=== PATIENT | female | born 1960 | race Caucasian/White ===

== ENCOUNTER 2018-11-13 10:41 | Outpatient (CLI) | payer MEDICARE ==
--- NOTE | 2018-11-13 11:58 | MRI ---
CERVICAL SPINE MRI WITHOUT IV CONTRAST: Date: 11/13/18 HISTORY: M47.812 spondylosis cervical and thoracic spine. Exam somewhat limited because of motion ar tifact. FINDINGS: There are generalized disc desiccation changes, and ligament and facet hypertrophic changes, with par ticularly thickening of the posterior longitudinal ligament from C4 through C7. Soft tissue neck appe ars unremarkable. Visualized lower brain appears unremarkable. C2-C3: No significant stenosis. C3-C4: Disc osteophytosis with mild lateral recess thinning and moderate left foraminal stenosis. C4-C5: Prominent disc osteophytosis, somewhat more prominent in the left paracentral region with mod erate central canal stenosis and moderate to severe left lateral recess stenosis and bilateral forami nal stenosis. C5-C6: Diffuse disc osteophytosis with canal and lateral recess stenosis, and bilateral foraminal st enosis, worse on right side. C6-C7: Diffuse disc osteophytosis with canal and lateral recess stenosis, and moderate to severe bel ateral foraminal stenosis, worse on left side. C7-T1: Focal disc osteophytosis centrally with minimal indention of the central ventral thecal sac, without significant lateral recess or foraminal stenosis. No evidence for significant abnormal marrow signal. No evidence for overt spinal cord compression or spinal cord mass, or abnormal spinal cord signal. IMPRESSION: Variable severity multilevel canal, lateral recess, and foraminal stenosis of the cervical spine, par ticularly at C4-C5, C5-C6, and C6-C7, as above. POS: TPC
== END 2018-11-13 10:42 | disposition home or self-care (01) ==
LOC: SCSMRI 10:41
PROVIDERS: ATTEND Family Medicine
DX: M47.812 Spondylosis without myelopathy or radiculopathy, cervical region (principal); M48.02 Spinal stenosis, cervical region
CPT/HCPCS: 72141; 72146

== ENCOUNTER 2019-02-05 11:13 | Emergency (ER) | payer MEDICARE ==
[2019-02-05] MEDS ORDERED: Metoprolol Tartrate 50 MG TAB ONE (11:52)
[2019-02-05] MEDS ORDERED: Gabapentin 300 MG CAP PO SCH (13:00)
[2019-02-05 14:22] LABS: Bilirubin Negative (Negative); Blood, Urine Negative (Negative); Clarity Turbid (Clear); Glucose, Urine (Dipstick) Greater than 1000 mg/dL (Negative); Leukocyte 500 Leu/uL (Negative); Nitrite Negative (Negative); Protein, Urine (Dipstick) Negative (Neg-Trace); Renal Epithelial 0-3 HPF (None Seen); Transitional Epithelial 0-3 HPF (None Seen); Urobilinogen Normal mg/dL (Less than 2); WBC/HPF Greater than 50 HPF (0-3)
[2019-02-05 14:31] LABS: Bacteria/HPF 1+ HPF (None Seen)
== END 2019-02-05 14:52 | disposition home or self-care (01) ==
LOC: ERS 11:13
DX: I10 Essential (primary) hypertension (principal); N39.0 Urinary tract infection, site not specified; E66.9 Obesity, unspecified; E11.9 Type 2 diabetes mellitus without complications; I25.10 Atherosclerotic heart disease of native coronary artery without angina pectoris; E78.5 Hyperlipidemia, unspecified; Z79.891 Long term (current) use of opiate analgesic; Z79.84 Long term (current) use of oral hypoglycemic drugs; Z79.899 Other long term (current) drug therapy
CPT/HCPCS: 81003; 81015; 99283

== ENCOUNTER 2020-01-28 17:11 | Inpatient (IN) | payer MEDICARE, OTHER ==
[~2020-01-28 17:11] MED LIST: Iopamidol-370 76% 500 ML 1 ML ONE
[2020-01-28] MEDS ORDERED: Vancomycin 1 GM/200 ML BAG ONE (18:29)
[2020-01-28] MEDS ORDERED: Ondansetron PF 4 MG/2 ML Vial ONE (20:21)
[2020-01-28] MEDS ORDERED: Acetaminophen 500 MG TAB ONE (20:21)
--- NOTE | 2020-01-28 20:56 | CT ---
EXAM: CTA of the chest HISTORY: Tachycardia and low back pain COMPARISON: CT abdomen/pelvis 01/28/2020 TECHNIQUE: Multiple contiguous axial images were obtained a CTA of the chest with contrast per pulmon aylin embolism protocol. 3-D oblique MIP reformats and direct coronal reformats were performed. FINDINGS: HEART: Normal in size without focal cardiac abnormality. PULMONARY ARTERIES: Normal in caliber without filling defects to suggest pulmonary emboli. MEDIASTINUM: No hilar or mediastinal lymphadenopathy. LUNGS: No focal infiltrates or masses. PLEURAL SPACE: No pleural effusion or pneumothorax. CHEST WALL SOFT TISSUES: Unremarkable VISUALIZED OSSEOUS STRUCTURES: Degenerative changes in the spine and the left shoulder. VISUALIZED SUBDIAPHRAGMATIC STRUCTURES: Status post cholecystectomy. 2.0 cm right adrenal mass IMPRESSION: 1. No evidence of pulmonary thromboembolism 2. The right adrenal mass was not definitely seen on prior CT of the abdomen. A left adrenal adenoma was seen on prior examination which was not imaged on this exam.
[2020-01-28] MEDS ORDERED: Labetalol HCl 100 MG/20 ML VIAL ONE (22:45)
[2020-01-29 01:00] VITALS: BMI 40.5
[2020-01-29] MEDS ORDERED: Ondansetron PF 4 MG/2 ML Vial IVP PRN (01:17)
[2020-01-29] MEDS ORDERED: Promethazine HCl 12.5 MG in Sodium Chloride 0.9% 50 ML IVPB PRN (01:17)
[2020-01-29] MEDS ORDERED: Guaifenesin DM 100-10/5 ML UDCUP PO PRN (01:17)
[2020-01-29] MEDS ORDERED: Labetalol HCl 100 MG/20 ML VIAL SLOW IVP PRN (01:17)
[2020-01-29] MEDS ORDERED: cloNIDine 0.1 MG TAB PO PRN (01:17)
[2020-01-29] MEDS ORDERED: hydrALAZINE 20 MG/ML VIAL SLOW IVP PRN (01:17)
--- NOTE | 2020-01-29 01:20 | PDOC.HHP ---
Hospitalist HPI - History of Present Illness back pain History of Present Illness: Patient is a 59 year old female with PMH HTN, DM, CAD, HLD, chronic back pain transferred from [facility] for back pain, sepsis, possible UTI. She had chronic back pain that has been worsening over the last few days. Evaluated at [facility] and diagnosed with UTI and transferred for persistent tachycardia with HR >120 for concern for sepsis. She denies urinary symptoms, vaginal complaints, fever or vomiting. No numbness, no saddle anesthesia, no bowel or bladder incontinence. She had had MRIs before, at our facility last year with some stenosis of cervical spine but the pain now in lumbar spine and not had MRI of that area. tachycardic on admission, CTA chest did not show PE, patient had paraspinal tenderness concerning for paraspinal abscess, MRI T/L spine ordered by ED, sound consulted for admission. she has DM and supposed to be on insulin but cannot afford and takes PO only. CRP 2.2, ESR normal. her UA at [facility] not actually a UTI. given empiric vancomycin. patient to be admitted for back pain and sepsis workup. Hospitalist ROS - Review of Systems Constitutional: reports: fever, weakness, malaise. denies: chills, sweats, other Eyes: denies: pain, vision change, conjunctivae inflammation, eyelid inflammation, redness, other ENT: denies: ear pain, ear discharge, nose pain, nose discharge, nose congestion , mouth pain, mouth swelling, throat pain, throat swelling, other Respiratory: denies: cough, dry, shortness of breath, hemoptysis, SOB with excertion, pleuritic pain, sputum, wheezing, other Cardiovascular: denies: chest pain, palpitations, orthopnea, paroxysmal noc. dyspnea, edema, light headedness, other Gastrointestinal: denies: nausea, vomiting, abdominal pain, diarrhea, constipation, melena, hematochezia, other Genitourinary: denies: dysuria, frequency, incontinence, hematuria, retention, other Musculoskeletal: reports: back pain. denies: neck pain, shoulder pain, arm pain , hand pain, leg pain, foot pain, other Skin: denies: rash, lesions, peter, bruising, other Neurological: denies: weakness, numbness, incoordination, change in speech, confusion, seizures, other All other systems reviewed; all pertinent +/- noted in HPI/Subj - Medication Medications: Catapres TABLET : Strength - 0.1 mg : ORAL Patient Dose: tab(s) Oral 2 times a day. glipiZIDE TABLET : Strength - 10 mg : ORAL Patient Dose: 1 tab(s) Oral 2 times a day. hydrochlorothiazide TABLET : Strength - 25 mg : ORAL Patient Dose: 1 tab(s) Oral once a day. metFORMIN TABLET : Strength - 500 mg : ORAL Patient Dose: 1 tab(s) Oral 2 times a day. gabapentin CAPSULE : Strength - 100 mg : ORAL Patient Dose: 2 times a day. celecoxib CAPSULE : Strength - 100 mg : ORAL Patient Dose: once a day. Hospitalist History - Past Medical History Other Medical History: history of hypertension, hyperlipidemia, HTN, CAD, diabetes - Past Surgical History Other Surgical History: Surgical history of cholecystectomy, veins stripping, vericous veins, cleft palate, DNC ABOUT 13 YEARS AGO SHE HAS NOT HAD A PERIOD SINCE. BREAST BIOPSY, ENDOSCOPY - Family History Family History: reports: no pertinent history - Social History Alcohol: reports: None Drugs: reports: none - Exam General Appearance: NAD, awake alert Eye: PERRL, anicteric sclera ENT: normocephalic atraumatic, no oropharyngeal lesions, moist mucosa Neck: supple, symmetric, no JVD, no thyromegaly, no lymphadenopathy, no carotid bruit Heart: RRR, no murmur, no gallops, no rubs, normal peripheral pulses Respiratory: CTAB, no wheezes, no rales, no ronchi, normal chest expansion, no tachypnea, normal percussion Gastrointestinal: soft, non-tender, non-distended, normal bowel sounds, no palpable masses, no hepatomegaly, no splenomegaly, no bruit Extremities: no cyanosis, no clubbing, no edema Extremities - other findings: paraspinal tenderness T/L spine no rash Skin: normal turgor, no lesions, no rashes Neurological: cranial nerve grossly intact, normal sensation to touch, no weakness, no focal deficits, no new deficit Neurological - other findings: SLR negative bilaterally, normal sens/motor all extr. all rflx 2+ and equal Musculoskeletal: normal tone, normal strength, no muscle wasting Psychiatric: normal affect, normal behavior, A&O x 3 Hospitalist Results - Labs Result Diagrams: 01/29/20 03:36 01/29/20 03:36 Lab results: ESR Westergren 63 mm/hr (Less than 30) 01/28/20 18:44 Lactic Acid 1.4 mmol/L (0.5-2.2) 01/28/20 18:44 C-Reactive Protein 2.21 mg/dL (= or < 0.5) H 01/28/20 18:44 CTA Angio Chest W WO Con Observe DT: [facility] Jan 28, 2020 IMPRESSION: 1. No evidence of pulmonary thromboembolism 2. The right adrenal mass was not definitely seen on prior CT of the abdomen. A left adrenal adenoma was seen on prior examination which was not imaged on this exam. Additional comment: VITAL SIGNS [facility] Jan 28, 2020 23:28 DARRIUS Macdonald Jeffery BP: 178/106 Time: 01/28/2020 23:28. VITAL SIGNS [facility] Jan 28, 2020 22:30 DARRIUS Macdonald Jeffery BP: 224/144 Time: 01/28/2020 22:30. VITAL SIGNS [facility] Jan 28, 2020 23:59 DARRIUS Aguilera Lindsey BP: 181/105 MAP: 138 Pulse: 100 Resp: 20 (Non-Labored) Temp: 97.9 (Oral) Pain: 5 O2 sat: 100 on (Room Air) Time: 01/28/2020 23:59. Hospitalist H&P A/P - Plan Plan: Patient is a 59 year old female with PMH HTN, DM, CAD, HLD, chronic back pain transferred from [facility] for back pain, sepsis, possible UTI. # paraspinal tenderness # sepsis # acute and chronic back pain She had chronic back pain that has been worsening over the last few days. Evaluated at [facility] and diagnosed with UTI and transferred for persistent tachycardia with HR >120 for concern for sepsis. No numbness, no saddle anesthesia, no bowel or bladder incontinence. neuro exam normal. She had had MRIs before, at our facility last year with some stenosis of cervical spine but the pain now in lumbar spine and not had MRI of that area. tachycardic on admission, CTA chest did not show PE, patient had paraspinal tenderness concerning for paraspinal abscess, MRI T/L spine ordered by ED, sound consulted for admission. CRP 2.2, ESR normal. her UA at [facility] not actually a UTI. given empiric vancomycin. patient to be admitted for back pain and sepsis workup. pcn allergy noted. has home health. nurse encouraged her to come in. - admit to floor - MRI T/L spine - PRN pain medications, resume home meds - start vancomycin/levaquin, follow cultures # HTN - resume home meds, PRNs ordered as well. she missed her clonidine due to lack of refills, probably having rebound htn # CAD - unclear history, resume home meds and ASA # DM - cannot affort insulin, on PO meds at home - SSI # HLD - resume home meds
[2020-01-29] MEDS ORDERED: Electrolyte Replacement Protoc 1 EACH EACH FS PRN (01:30)
[2020-01-29] MEDS: HYDROcodone/Acetaminophen 5/325 mg Tablet PO PRN (02:08)
[2020-01-29 02:46] LABS: Cocaine Metabolite Screen Not Detected (NotDetected); Medtox Reader # READER 4; Methamphetamine Not Detected (NotDetected); Phencyclidine (PCP) Not Detected (NotDetected); THC/Cannabinoid Screen Not Detected (NotDetected)
[2020-01-29 02:47] LABS: Amphetamine Not Detected (NotDetected); Barbiturates Screen Not Detected (NotDetected); Benzodiazepine Screen Not Detected (NotDetected); Medtox Control Line Valid? VALID (VALID); Methadone Not Detected (NotDetected); Opiate Screen Detected (NotDetected); Oxycodone Screen Not Detected (NotDetected); Tricyclic Screen Not Detected (NotDetected)
[2020-01-29] MEDS: Vancomycin 1.5 GRAM/300 ML BAG 1.5 GM in Premix Bag 1 BAG IVPB SCH ×2 (03:16→16:58)
[2020-01-29 03:47] LABS: #Lymphocytes 1.7 thou/uL (1.20-3.40); #Monocytes 0.7 thou/uL (0.11-0.59); #Neutrophils 7.5 thou/uL (1.40-6.50); %Eosinophils 0.1 % (0.0-10.0); %Lymphocytes 16.8 % (21.0-51.0); %Monocytes 6.8 % (0.0-10.0); %Neutrophils 76.3 % (42.0-75.0); Hemoglobin 13.4 g/dL (12.0-16.0); Mean Corpuscular HGB CONC 33.6 g/dL (32.0-36.0); Mean Corpuscular Hemoglobin 30.3 pg (27.0-31.0); Mean Corpuscular Volume 90.3 fL (78.0-98.0); Platelet Count 162 thou/uL (130-400); RBC Distribution Width 11.8 % (11.5-14.5); Red Blood Cell (RBC) Count 4.43 mill/uL (4.20-5.40); White Blood Cell (WBC) Count 9.9 thou/uL (4.8-10.8)
[2020-01-29 04:05] LABS: Anion Gap 15 mmol/L (10-20); BUN (Urea Nitrogen) 16 mg/dL (9.8-20.1); Calc. Creatinine Clearance 129 mL/min (70-130); Calcium 8.7 mg/dL (7.8-10.44); Carbon Dioxide 25 mmol/L (22-29); Chloride 98 mmol/L (98-107); Estimated GFR-MDRD 77; Glucose 370 mg/dL (70-105); Magnesium 1.9 mg/dL (1.6-2.6); Potassium 4.1 mmol/L (3.5-5.1); Sodium 134 mmol/L (136-145)
[2020-01-29] MEDS ORDERED: Magnesium 2 GM/50 ML 2 GM in Premix Bag 1 BAG IVPB SCH (05:30)
[2020-01-29] MEDS: HumaLOG 300 UNITS/3 ML VIAL SC PRN ×4 (05:39→21:20)
[2020-01-29] MEDS ORDERED: cloNIDine 0.2 MG TAB PO PRN (05:42)
[2020-01-29] MEDS ORDERED: Aspirin 81 mg Enteric Coated Tablet PO SCH (06:45)
[2020-01-29] MEDS ORDERED: Lorazepam 2 MG/ML VIAL SLOW IVP SCH ×2 (08:30→10:30)
[2020-01-29] MEDS: Acetaminophen 325 MG TAB PO PRN (08:58)
[2020-01-29] MEDS: Famotidine 20 MG TAB PO SCH ×3 (08:59→21:20)
[2020-01-29] MEDS: Enoxaparin Sodium 40 MG/0.4 ML SYRINGE SC SCH (08:59)
[2020-01-29] MEDS: Aspirin 81 mg Enteric Coated Tablet PO SCH ×2 (08:59→10:11)
[2020-01-29] MEDS: Gabapentin 300 MG CAP PO SCH ×4 (08:59→21:20)
[2020-01-29] MEDS: Carvedilol 25 MG TAB PO SCH ×3 (09:00→21:20)
[2020-01-29] MEDS: Amlodipine 5 MG TAB PO SCH (09:00)
[2020-01-29] MEDS: glipiZIDE 10 MG TAB PO SCH ×2 (09:00→10:14)
[2020-01-29] MEDS: Polyethylene Glycol 3350 17 GM Packet PO SCH ×2 (09:01→10:14)
[2020-01-29] MEDS: Insulin Glargine 10 UNITS in Pre-Filled Syringe 1 EACH SC SCH (10:06)
[2020-01-29] MEDS: Morphine 2 MG/ML VIAL SLOW IVP PRN (10:15)
[2020-01-29] MEDS ORDERED: Magnevist 469MG/ML 20 ML VIAL ONE ×2 (11:03)
--- NOTE | 2020-01-29 12:06 | MRI ---
EXAM: MRI Thoracic Spine W WO Con DATE: 01/29/2020 8:47 AM INDICATION: Concern for epidural abscess COMPARISON: CTA of the chest dated January 28, 2020 and thoracic radiograph dated January 16, 2019. Co mparisons are also made with a prior MR of the thoracic spine dated 11/13/2018 FINDIN cc of [employer] was utilized for the exam. The bone marrow signal intensity appears within normal limits. The disc space heights are slightly na rrowed but within normal limits. There is multilevel DISH like changes involving the thoracic spine. No appreciable central canal or neural foraminal narrowing is demonstrated. No definite abnorm al epidural fluid collection is evident. There is no abnormal enhancement seen involving the disc spaces or vertebral bodies. IMPRESSION:No evidence to suggest presence of discitis osteomyelitis or epidural abscess formation wi thin the thoracic spine. Thoracic spondylosis.
--- NOTE | 2020-01-29 12:14 | MRI ---
Exam: Spine MRI with and without contrast HISTORY: Chronic back pain, x2 years. Symptoms are worsening over the last week. Evaluate for epidural abscess. FINDINGS: Appropriate T1 marrow signal intensity of the lumbar vertebra. Lumbar spine vertebral body heights ar e maintained. There is no fracture. No significant STIR hyperintensity to suggest vertebral body edema or ligamentous injury. There is no paravertebral or presacral edema/abnormal fluid collection. Appropriate signal intensity visualized paraspinal muscles and solid organs. Conus medullaris terminates at the T12-L1 disc space. Postcontrast images do not demonstrate any abnormal enhancement within the thecal sac including the c auda equina and conus medullaris. There is partial sacralization of L5 with a rudimentary L5-S1 disc. T11-T12: No significant posterior disc abnormality. No significant central canal stenosis or signific ant neural foraminal narrowing. T12-L1: Adequate disc hydration. No posterior disc abnormality. No significant central canal stenosis or significant neural foraminal narrowing. L1-L2: Adequate disc hydration. No posterior disc abnormality. Minimal flattening of the thecal sac. There is mild ligamentum flavum thickening and facet hypertrophy. Bilaterally, neural foramina are patent. L2-L3: Disc desiccation without significant loss of disc space height. Broad-based disc bulge, ligame ntum flavum thickening and facet hypertrophy result in mild to moderate central canal stenosis. Patent bilateral neural foramina. L3-L4: Disc desiccation without significant loss of disc space height. Broad-based disc bulge, ligame ntum flavum thickening and facet hypertrophy result in moderate central canal stenosis. Mild bilateral foraminal narrowing due to disc material. L4-L5: Disc desiccation without significant loss of disc space height. Broad-based disc bulge with a small central disc herniation. Mild ligamentum flavum thickening and facet hypertrophy. Mild stenosis of the thecal sac. Encroachment upon bilateral subarticular zones with partial obscuration o f bilateral traversing L5 nerve roots. L5-S1: Based on the sagittal images, no significant central canal stenosis or significant neural fora brooklynn narrowing. Note, the overall AP diameter of the central spinal canal is narrowed secondary to congenitally fore shortened pedicles. IMPRESSION: 1. No pathologic enhancement of the vertebral bodies. 2. Congenitally foreshortened pedicles with overall decreased AP diameter of the central spinal canal . 3. No evidence of epidural abscess. 4. Varying degrees of central canal stenosis and neural foraminal narrowing as detailed above. Transcribed Date/Time: 01/29/2020 1:06 PM
[2020-01-29 13:58] LABS: SARS-CoV-2 MS2 Positive; SARS-CoV-2 N Gene Negative; SARS-CoV-2 S Gene Negative; SARS-CoV-2 by NAA Not Detected (NotDetected); SARS-CoV-2 orf1ab Negative
[2020-01-30] MEDS: Vancomycin 1.5 GRAM/300 ML BAG 1.5 GM in Premix Bag 1 BAG IVPB SCH (02:43)
[2020-01-30 05:27] LABS: #Basophils 0.1 thou/uL (0.0-0.2); #Eosinphils 0.1 thou/uL (0.0-0.7); #Lymphocytes 2.3 thou/uL (1.20-3.40); #Monocytes 0.6 thou/uL (0.11-0.59); #Neutrophils 4.1 thou/uL (1.40-6.50); %Basophils 0.8 % (0.0-1.0); %Eosinophils 1.9 % (0.0-10.0); %Lymphocytes 32.3 % (21.0-51.0); %Monocytes 8.1 % (0.0-10.0); %Neutrophils 56.9 % (42.0-75.0); Hemoglobin 12.8 g/dL (12.0-16.0); Mean Corpuscular HGB CONC 31.9 g/dL (32.0-36.0); Mean Corpuscular Hemoglobin 29.6 pg (27.0-31.0); Mean Corpuscular Volume 92.6 fL (78.0-98.0); Mean Platelet Volume 9.3 fL (7.4-10.4); Platelet Count 150 thou/uL (130-400); RBC Distribution Width 12.1 % (11.5-14.5); Red Blood Cell (RBC) Count 4.34 mill/uL (4.20-5.40); White Blood Cell (WBC) Count 7.2 thou/uL (4.8-10.8)
[2020-01-30 05:58] LABS: Anion Gap 15 mmol/L (10-20); BUN (Urea Nitrogen) 18 mg/dL (9.8-20.1); Calc. Creatinine Clearance 136 mL/min (70-130); Calcium 7.9 mg/dL (7.8-10.44); Carbon Dioxide 21 mmol/L (22-29); Chloride 102 mmol/L (98-107); Estimated GFR-MDRD 82; Glucose 279 mg/dL (70-105); Magnesium 2.2 mg/dL (1.6-2.6); Potassium 4.2 mmol/L (3.5-5.1); Sodium 134 mmol/L (136-145)
[2020-01-30] MEDS: HYDROcodone/Acetaminophen 5/325 mg Tablet PO PRN (07:22)
[2020-01-30] MEDS: Aspirin 81 mg Enteric Coated Tablet PO SCH (08:37)
[2020-01-30] MEDS: glipiZIDE 10 MG TAB PO SCH (08:38)
[2020-01-30] MEDS: Carvedilol 25 MG TAB PO SCH ×2 (08:39→20:45)
[2020-01-30] MEDS: Amlodipine 5 MG TAB PO SCH (08:40)
[2020-01-30] MEDS: Famotidine 20 MG TAB PO SCH ×2 (08:43→20:45)
[2020-01-30] MEDS: Gabapentin 300 MG CAP PO SCH ×3 (08:43→20:45)
[2020-01-30] MEDS: Insulin Glargine 10 UNITS in Pre-Filled Syringe 1 EACH SC SCH ×2 (08:44→20:45)
[2020-01-30] MEDS: Enoxaparin Sodium 40 MG/0.4 ML SYRINGE SC SCH (08:45)
[2020-01-30] MEDS: Polyethylene Glycol 3350 17 GM Packet PO SCH (08:46)
[2020-01-30] MEDS: Acetaminophen 325 MG TAB PO PRN (08:54)
[2020-01-30] MEDS ORDERED: Lidocaine 5% Patch TD SCH (11:00)
[2020-01-30] MEDS ORDERED: predniSONE 20 MG TAB PO SCH (11:45)
[2020-01-30] MEDS: Morphine 2 MG/ML VIAL SLOW IVP PRN (12:31)
[2020-01-30] MEDS: HumaLOG 300 UNITS/3 ML VIAL SC PRN ×2 (13:54→20:45)
[2020-01-30] MEDS: Methocarbamol 500 MG TAB PO SCH ×2 (15:49→20:45)
--- NOTE | 2020-01-30 16:12 | PDOC.HOSPP ---
- Subjective Subjective: still complaints of back pain. No evidence of infection on spine MRI. no fever. d/w her sister on the phone - Objective Vital Signs & Weight: Vital Signs (12 hours) Temp Pulse Resp BP BP Pulse Ox 01/30/20 08:40 82 142/78 H 01/30/20 08:00 97.4 F L 82 18 142/78 H 94 L Weight Weight 229 lb I&O: 01/29/20 01/30/20 01/31/20 06:59 06:59 06:59 Intake Total 520 300 Output Total 1000 950 Balance -480 -650 Result Diagrams: 01/30/20 05:13 01/30/20 05:13 Additional Labs: Accuchecks 01/30/20 01/30/20 01/29/20 08:13 04:35 21:14 POC Glucose 278 H 288 H 298 H 01/29/20 16:57 POC Glucose 321 H Hospitalist ROS - Medication Medications: Active Medications Generic Name Dose Route Start Last Admin Trade Name Freq PRN Reason Stop Dose Admin Acetaminophen 650 mg 01/29/20 01:17 01/30/20 08:54 Tylenol PO 650 mg Q4H PRN Administration Headache/Fever/Mild Pain (1-3) Hydrocodone Bitart/Acetaminophen 1 tab 01/29/20 01:17 01/30/20 07:22 [place] 5/325 PO 1 tab Q4H PRN Administration Moderate Pain (4-6) Amlodipine Besylate 2.5 mg 01/29/20 09:00 01/30/20 08:40 Norvasc PO 2.5 mg QAM BRENDA Administration Aspirin 81 mg 01/29/20 09:00 01/30/20 08:37 Ecotrin PO 81 mg DAILY BRENDA Administration Carvedilol 25 mg 01/29/20 09:00 01/30/20 08:39 Coreg PO 25 mg BID BRENDA Administration Enoxaparin Sodium 40 mg 01/29/20 09:00 01/30/20 08:45 Lovenox SC 40 mg 0900 BRENDA Administration Famotidine 20 mg 01/29/20 09:00 01/30/20 08:43 Pepcid PO 20 mg BID BRENDA Administration Gabapentin 600 mg 01/29/20 09:00 01/30/20 15:49 Neurontin PO 600 mg TID BRENDA Administration Glipizide 10 mg 01/29/20 09:00 01/30/20 08:38 Glucotrol PO 10 mg DAILY BRENDA Administration Promethazine HCl 12.5 mg/ 50.5 mls @ 202 mls/hr 01/29/20 01:17 01/29/20 10:43 Sodium Chloride IVPB 50.5 mls Q6H PRN Administration Nausea/vomiting use second Insulin Glargine 10 units/ 0.1 mls @ 0 mls/hr 01/29/20 09:00 01/30/20 08:44 Miscellaneous Medication SC 0.1 mls QAM BRENDA Administration Insulin Human Lispro 0 units 01/29/20 01:17 01/30/20 13:54 Humalog SC 3 unit .MILD SLIDING SCALE PRN Administration Mild Correctional Scale Methocarbamol 500 mg 01/30/20 15:00 01/30/20 15:49 Robaxin PO 500 mg TID BRENDA Administration Morphine Sulfate 2 mg 01/29/20 01:17 01/30/20 12:31 Morphine SLOW IVP 2 mg Q4H PRN Administration severe pain 4-10 Polyethylene Glycol 17 gm 01/29/20 09:00 01/30/20 08:46 Miralax PO Not Given DAILY BRENDA Sodium Chloride 10 ml 01/29/20 09:00 01/30/20 08:45 Flush - Normal Saline IVF 10 ml Q12HR BRENDA Administration Hosp A/P - Plan -Physical Exam General Appearance: NAD, awake alert Eye: PERRL, anicteric sclera ENT: normocephalic atraumatic, no oropharyngeal lesions, moist mucosa Neck: supple, symmetric, no JVD, no thyromegaly, no lymphadenopathy, no carotid bruit Heart: RRR, no murmur, no gallops, no rubs, normal peripheral pulses Respiratory: CTAB, no wheezes, no rales, no ronchi, normal chest expansion, no tachypnea, normal percussion Gastrointestinal: soft, non-tender, non-distended, normal bowel sounds, no palpable masses, no hepatomegaly, no splenomegaly, no bruit Extremities: no cyanosis, no clubbing, no edema Extremities - other findings: paraspinal tenderness T/L spine no rash Skin: normal turgor, no lesions, no rashes Neurological: cranial nerve grossly intact, normal sensation to touch, no weakness, no focal deficits, no new deficit Neurological - other findings: SLR negative bilaterally, normal sens/motor all extr. all rflx 2+ and equal Musculoskeletal: normal tone, normal strength, no muscle wasting Psychiatric: normal affect, normal behavior, A&O x 3 Assessment and Plan: Patient is a 59 year old female with PMH HTN, DM, CAD, HLD, chronic back pain transferred from [facility] for back pain, sepsis, possible UTI. #Acute on chronic low back pain #Sepsis ruled out #SIRS - non-infectious etiology #HTN #DM 2 #HLD #CAD 01/30/20 MRI of T and L-spine reviewed. No evidence of abscess. Patient remains afebrile. Patient has SIRS, noninfectious etiology, likely due to her underlying pain. We will DC empiric IV abx, and monitor clinically. UCx and BCx no growth. Adjust pain regimen. PT eval, may need rehab upon discharge. COVID neg. 01/29/20 She had chronic back pain that has been worsening over the last few days. Evaluated at [facility] and diagnosed with UTI and transferred for persistent tachycardia with HR >120 for concern for sepsis. No numbness, no saddle anesthesia, no bowel or bladder incontinence. neuro exam normal. She had had MRIs before, at our facility last year with some stenosis of cervical spine but the pain now in lumbar spine and not had MRI of that area. tachycardic on admission, CTA chest did not show PE, patient had paraspinal tenderness concerning for paraspinal abscess, MRI T/L spine ordered by ED, sound consulted for admission. CRP 2.2, ESR normal. her UA at [place] not actually a UTI. given empiric vancomycin. patient to be admitted for back pain and sepsis workup. pcn allergy noted. has home health. nurse encouraged her to come in. - admit to floor - MRI T/L spine - PRN pain medications, resume home meds - start vancomycin/levaquin, follow cultures
[2020-01-30] MEDS: Lidocaine Patch Removal 1 EACH TOP SCH (21:00)
[2020-01-31] MEDS: HYDROcodone/Acetaminophen 5/325 mg Tablet PO PRN ×2 (02:01→08:24)
[2020-01-31 04:09] LABS: #Lymphocytes 1.4 thou/uL (1.20-3.40); #Monocytes 0.4 thou/uL (0.11-0.59); #Neutrophils 6.7 thou/uL (1.40-6.50); %Basophils 0.1 % (0.0-1.0); %Eosinophils 0.2 % (0.0-10.0); %Lymphocytes 16.7 % (21.0-51.0); %Monocytes 4.2 % (0.0-10.0); %Neutrophils 78.8 % (42.0-75.0); Hemoglobin 13.2 g/dL (12.0-16.0); Mean Corpuscular HGB CONC 32.3 g/dL (32.0-36.0); Mean Corpuscular Hemoglobin 29.8 pg (27.0-31.0); Mean Corpuscular Volume 92.2 fL (78.0-98.0); Mean Platelet Volume 9.2 fL (7.4-10.4); Platelet Count 160 thou/uL (130-400); RBC Distribution Width 11.9 % (11.5-14.5); Red Blood Cell (RBC) Count 4.44 mill/uL (4.20-5.40); White Blood Cell (WBC) Count 8.5 thou/uL (4.8-10.8)
[2020-01-31 04:45] LABS: Anion Gap 11 mmol/L (10-20); BUN (Urea Nitrogen) 20 mg/dL (9.8-20.1); Calc. Creatinine Clearance 132 mL/min (70-130); Calcium 8.4 mg/dL (7.8-10.44); Carbon Dioxide 27 mmol/L (22-29); Chloride 100 mmol/L (98-107); Estimated GFR-MDRD 79; Glucose 313 mg/dL (70-105); Magnesium 2.2 mg/dL (1.6-2.6); Potassium 4.3 mmol/L (3.5-5.1); Sodium 134 mmol/L (136-145)
[2020-01-31] MEDS: Aspirin 81 mg Enteric Coated Tablet PO SCH (08:22)
[2020-01-31] MEDS: Gabapentin 300 MG CAP PO SCH ×3 (08:22→20:38)
[2020-01-31] MEDS: predniSONE 20 MG TAB PO SCH (08:22)
[2020-01-31] MEDS: Amlodipine 5 MG TAB PO SCH (08:23)
[2020-01-31] MEDS: Carvedilol 25 MG TAB PO SCH ×2 (08:24→20:38)
[2020-01-31] MEDS: Methocarbamol 500 MG TAB PO SCH ×3 (08:25→20:38)
[2020-01-31] MEDS: glipiZIDE 10 MG TAB PO SCH (08:25)
[2020-01-31] MEDS: Famotidine 20 MG TAB PO SCH ×2 (08:25→20:38)
[2020-01-31] MEDS: Insulin Glargine 10 UNITS in Pre-Filled Syringe 1 EACH SC SCH ×2 (08:25→20:38)
[2020-01-31] MEDS: Enoxaparin Sodium 40 MG/0.4 ML SYRINGE SC SCH (08:25)
[2020-01-31] MEDS: Polyethylene Glycol 3350 17 GM Packet PO SCH (08:27)
[2020-01-31] MEDS: Lidocaine 5% Patch TD SCH (11:07)
[2020-01-31] MEDS: HumaLOG 300 UNITS/3 ML VIAL SC PRN ×3 (13:49→20:38)
--- NOTE | 2020-01-31 14:29 | PDOC.HOSPP ---
- Subjective Subjective: c/o back pain, but better. Pt declined inpt rehab. She would like to go home tomorrow and follow up with pain specialist. - Objective Vital Signs & Weight: Vital Signs (12 hours) Temp Pulse Resp BP Pulse Ox 01/31/20 08:23 84 01/31/20 08:00 97.7 F 84 16 134/80 96 Weight Weight 229 lb I&O: 01/30/20 01/31/20 02/01/20 06:59 06:59 06:59 Intake Total 300 Output Total 950 Balance -650 Result Diagrams: 01/31/20 03:55 01/31/20 03:55 Additional Labs: Accuchecks 01/31/20 01/31/20 01/30/20 13:19 08:16 19:34 POC Glucose 385 H 253 H 424 H 01/30/20 16:10 POC Glucose 133 H Hospitalist ROS - Medication Medications: Active Medications Generic Name Dose Route Start Last Admin Trade Name Freq PRN Reason Stop Dose Admin Acetaminophen 650 mg 01/29/20 01:17 01/30/20 08:54 Tylenol PO 650 mg Q4H PRN Administration Headache/Fever/Mild Pain (1-3) Hydrocodone Bitart/Acetaminophen 1 tab 01/29/20 01:17 01/31/20 08:24 [place] 5/325 PO 1 tab Q4H PRN Administration Moderate Pain (4-6) Amlodipine Besylate 2.5 mg 01/29/20 09:00 01/31/20 08:23 Norvasc PO 2.5 mg QAM BRENDA Administration Aspirin 81 mg 01/29/20 09:00 01/31/20 08:22 Ecotrin PO 81 mg DAILY BRENDA Administration Carvedilol 25 mg 01/29/20 09:00 01/31/20 08:24 Coreg PO 25 mg BID BRENDA Administration Enoxaparin Sodium 40 mg 01/29/20 09:00 01/31/20 08:25 Lovenox SC 40 mg 0900 BRENDA Administration Famotidine 20 mg 01/29/20 09:00 01/31/20 08:25 Pepcid PO 20 mg BID BRENDA Administration Gabapentin 600 mg 01/29/20 09:00 01/31/20 08:22 Neurontin PO 600 mg TID BRENDA Administration Glipizide 10 mg 01/29/20 09:00 01/31/20 08:25 Glucotrol PO 10 mg DAILY BRENDA Administration Promethazine HCl 12.5 mg/ 50.5 mls @ 202 mls/hr 01/29/20 01:17 01/29/20 10:43 Sodium Chloride IVPB 50.5 mls Q6H PRN Administration Nausea/vomiting use second Insulin Glargine 10 units/ 0.1 mls @ 0 mls/hr 01/29/20 09:00 01/31/20 08:25 Miscellaneous Medication SC 0.1 mls QAM BRENDA Administration Insulin Glargine 10 units/ 0.1 mls @ 0 mls/hr 01/30/20 21:00 01/30/20 20:45 Miscellaneous Medication SC 0.1 mls HS BRENDA Administration Insulin Human Lispro 0 units 01/29/20 01:17 01/31/20 13:49 Humalog SC 6 unit .MILD SLIDING SCALE PRN Administration Mild Correctional Scale Lidocaine 1 patch 01/31/20 09:00 01/31/20 11:07 Lidoderm 5% Patch TD 1 patch 0900 BRENDA Administration Methocarbamol 500 mg 01/30/20 15:00 01/31/20 08:25 Robaxin PO 500 mg TID BRENDA Administration Miscellaneous Medication 1 each 01/30/20 21:00 01/30/20 21:00 Lidocaine Patch Removal TOP Not Given 2100 BRENDA Morphine Sulfate 2 mg 01/29/20 01:17 01/30/20 12:31 Morphine SLOW IVP 2 mg Q4H PRN Administration severe pain 4-10 Polyethylene Glycol 17 gm 01/29/20 09:00 01/31/20 08:27 Miralax PO Not Given DAILY BRENDA Prednisone 60 mg 01/31/20 08:00 01/31/20 08:22 Prednisone PO 60 mg QAM-WM BRENDA Administration Sodium Chloride 10 ml 01/29/20 09:00 01/31/20 08:26 Flush - Normal Saline IVF 10 ml Q12HR BRENDA Administration Hosp A/P - Plan -Physical Exam General Appearance: NAD, awake alert Eye: PERRL, anicteric sclera ENT: normocephalic atraumatic, no oropharyngeal lesions, moist mucosa Neck: supple, symmetric, no JVD, no thyromegaly, no lymphadenopathy, no carotid bruit Heart: RRR, no murmur, no gallops, no rubs, normal peripheral pulses Respiratory: CTAB, no wheezes, no rales, no ronchi, normal chest expansion, no tachypnea, normal percussion Gastrointestinal: soft, non-tender, non-distended, normal bowel sounds, no palpable masses, no hepatomegaly, no splenomegaly, no bruit Extremities: no cyanosis, no clubbing, no edema Extremities - other findings: paraspinal tenderness T/L spine no rash Skin: normal turgor, no lesions, no rashes Neurological: cranial nerve grossly intact, normal sensation to touch, no weakness, no focal deficits, no new deficit Neurological - other findings: SLR negative bilaterally, normal sens/motor all extr. all rflx 2+ and equal Musculoskeletal: normal tone, normal strength, no muscle wasting Psychiatric: normal affect, normal behavior, A&O x 3 Assessment and Plan: Patient is a 59 year old female with PMH HTN, DM, CAD, HLD, chronic back pain transferred from [place] for back pain, sepsis, possible UTI. #Acute on chronic low back pain #Sepsis ruled out #SIRS - non-infectious etiology #HTN #DM 2 #HLD #CAD 01/31/20 Pain is slightly more tolerable. Pt declined inpt rehab. Plan to follow up with pain specialist as outpatient. adjust pain regiment. Trial of 5 days steroid. cont muscle relaxer, liderderm patch and other analgesics. Cont PT anticipate d/c home tomorrow if her pain cont to improve. 01/30/20 MRI of T and L-spine reviewed. No evidence of abscess. Patient remains afebrile. Patient has SIRS, noninfectious etiology, likely due to her underlying pain. We will DC empiric IV abx, and monitor clinically. UCx and BCx no growth. Adjust pain regimen. PT eval, may need rehab upon discharge. COVID neg. 01/29/20 She had chronic back pain that has been worsening over the last few days. Evaluated at [place] [facility] and diagnosed with UTI and transferred for persistent tachycardia with HR >120 for concern for sepsis. No numbness, no saddle anesthesia, no bowel or bladder incontinence. neuro exam normal. She had had MRIs before, at our facility last year with some stenosis of cervical spine but the pain now in lumbar spine and not had MRI of that area. tachycardic on admission, CTA chest did not show PE, patient had paraspinal tenderness concerning for paraspinal abscess, MRI T/L spine ordered by ED, sound consulted for admission. CRP 2.2, ESR normal. her UA at [place] not actually a UTI. given empiric vancomycin. patient to be admitted for back pain and sepsis workup. pcn allergy noted. has home health. nurse encouraged her to come in. - admit to floor - MRI T/L spine - PRN pain medications, resume home meds - start vancomycin/levaquin, follow cultures
[2020-01-31] MEDS: Acetaminophen 325 MG TAB PO PRN (20:12)
[2020-01-31] MEDS: Lidocaine Patch Removal 1 EACH TOP SCH (20:39)
[2020-02-01] MEDS: HYDROcodone/Acetaminophen 5/325 mg Tablet PO PRN (02:25)
[2020-02-01] MEDS: HumaLOG 300 UNITS/3 ML VIAL SC PRN ×2 (07:17→11:57)
[2020-02-01] MEDS: Insulin Glargine 10 UNITS in Pre-Filled Syringe 1 EACH SC SCH (08:26)
[2020-02-01] MEDS: Amlodipine 5 MG TAB PO SCH (08:27)
[2020-02-01] MEDS: Carvedilol 25 MG TAB PO SCH (08:27)
[2020-02-01] MEDS: Methocarbamol 500 MG TAB PO SCH (08:27)
[2020-02-01] MEDS: Gabapentin 300 MG CAP PO SCH (08:29)
[2020-02-01] MEDS: predniSONE 20 MG TAB PO SCH (08:29)
[2020-02-01] MEDS: Enoxaparin Sodium 40 MG/0.4 ML SYRINGE SC SCH (08:30)
[2020-02-01] MEDS: Aspirin 81 mg Enteric Coated Tablet PO SCH (08:30)
[2020-02-01] MEDS: Famotidine 20 MG TAB PO SCH (08:30)
[2020-02-01] MEDS: glipiZIDE 10 MG TAB PO SCH (08:30)
[2020-02-01] MEDS: Lidocaine 5% Patch TD SCH (08:31)
[2020-02-01] MEDS: Polyethylene Glycol 3350 17 GM Packet PO SCH (08:32)
[2020-02-01 09:33] VITALS: BP 182/93; TEMP 98.3
--- NOTE | 2020-02-01 11:19 | DIS ---
DATE OF ADMISSION: 01/28/2020 DATE OF DISCHARGE: 02/01/2020 DISCHARGE DIAGNOSES: 1. Acute on chronic low back pain. 2. Sepsis, ruled out. 3. Systemic inflammatory response syndrome, noninfectious etiology. 4. Hypertension. 5. Diabetes, type 2. 6. Dyslipidemia. 7. Coronary artery disease. CONSULTATIONS: None. HISTORY OF PRESENT ILLNESS AND BRIEF HOSPITAL COURSE: The patient is a pleasant 59-year-old female, who has significant past medical history of hypertension, diabetes, CAD, dyslipidemia, chronic back pain, who was transferred from [place] for acute on chronic back pain, and also concerning for sepsis and possible urinary tract infections. In the ED, the patient was diagnosed with UTI, she was tachycardic, there was some concern for sepsis. However, review of her UA was not strongly suggestive of UTI. Urine cultures, no growth. Blood cultures, no growth. The patient was started on empiric IV antibiotics. Since she had no fever, no white count, the patient was transferred to [place] for MRI of the spine to rule out possible infectious etiology of her back. Her MRI did not suggest any evidence of abscess. Detail of the MRI of her spine noted below. Her sepsis has been ruled out. Her white count remained normal. She had no fever. Her pain regimen was adjusted. PT eval, also recommend inpatient rehab, however, the patient declined inpatient rehab and would like to go home with home health. She already had her home health setup. The patient stated she will follow up with pain specialist for further management of her pain. At this time part, the patient requests to be discharged home. DISPOSITION: The patient is stable to discharge home with home health. ACTIVITY: As tolerated. DIET: Diabetic diet. LABORATORY DATA AND IMAGING STUDY: Lumbar spine MRI, no pathology enhancements of the vertebral body, congenital for shortened pedicles, overall decreased AP diameter of the central spinal canal. No evidence of epidural abscess. Varying degrees of central stenosis and neural foraminal narrowing. Thoracic spine MRI, no evidence to suggest presence of diskitis or osteomyelitis or epidural abscess formation within the thoracic spine. Chest CTA, no evidence of PE. Incidental findings of right renal mass, but is not definitive since on CT of her abdomen. Left adrenal adenoma was seen on prior examination, which was not imaged on this exam. Blood cultures and urine cultures, no growth. COVID PCR negative. CBC; WBC 8.5, hemoglobin 13.2, hematocrit 41.0, and platelets 160. Chemistry; sodium 134, potassium 4.3, chloride 100, carbon dioxide 27, BUN 20, creatinine 0.75, and glucose 313. TSH within normal limits 1.28. PHYSICAL EXAMINATION: VITAL SIGNS: Temperature 98.3, pulse 76, respiratory rate 20, saturating 96% on room air, and blood pressure 182/93. GENERAL APPEARANCE: The patient is alert and oriented x3. She is not in acute distress. HEENT: Normocephalic and atraumatic. Mucous membranes moist. NECK: Supple. No lymphadenopathy. No JVD. CARDIOVASCULAR: Regular rate and rhythm. S1 and S2 noted. No murmur. PULMONOLOGY: Clear to auscultation bilaterally. ABDOMEN: Soft, nontender, and nondistended. Positive bowel sounds. EXTREMITIES: No edema. NEUROLOGIC: Cranial nerve 2 through 12 grossly intact. No focal weakness. PSYCHIATRIC: The patient is alert and oriented x3 with normal affect. FOLLOWUP CARE: 1. The patient advised to follow up with her PCP in 1 to 2 weeks. 2. The patient advised to follow up with her pain specialist for further management of her back pain. 3. The patient advised to take her medication as prescribed. 4. The patient advised to return to ED if her symptoms recurs or worsen. Thank you for allowing us to participate in this patient's care. Job ID: [id number]
--- NOTE | 2020-02-01 16:41 | DIS ---
DATE OF ADMISSION: 01/28/2020 DATE OF DISCHARGE: 02/01/2020 ADDENDUM: DISCHARGE MEDICATIONS: 1. Norvasc 2.5 mg p.o. daily. 2. Coreg (carvedilol) 25 mg b.i.d. 3. Clonidine 0.2 mg b.i.d. p.r.n. for blood pressure. 4. Gabapentin 600 mg t.i.d. 5. Glipizide 10 mg p.o. daily. 6. Metformin 1000 mg b.i.d. 7. Nystatin 15 g powder one application topical b.i.d. New medication; the patient will be discharged home with, 1. Ciprofloxacin 0.3 ophthalmic solution for conjunctivitis, one drop on each eye q.i.d. for 3 days. 2. [place] 5/325 mg tablet, one tablet q.6 hours p.r.n., 20 tablets. 3. Lidocaine 5% patch two patch daily, dispense 30 patch. 4. Prednisone 20 mg tablet, take 60 mg daily for 3 more days. 5. Zanaflex 4 mg b.i.d., dispense 30 tablets. Job ID: [id number]
== END 2020-02-01 14:15 | disposition home health service (06) | DRG 552 ==
LOC: ERS 17:11 → ONC 22:07
PROVIDERS: ADMIT Internal Medicine; ATTEND Internal Medicine
DX: M54.5 Low back pain (principal); R65.10 Systemic inflammatory response syndrome (SIRS) of non-infectious origin without acute organ dysfunction; Z20.828 Contact with and (suspected) exposure to other viral communicable diseases; G89.29 Other chronic pain; I10 Essential (primary) hypertension; E78.5 Hyperlipidemia, unspecified; E78.00 Pure hypercholesterolemia, unspecified; I25.10 Atherosclerotic heart disease of native coronary artery without angina pectoris; E11.9 Type 2 diabetes mellitus without complications; E66.9 Obesity, unspecified; K59.00 Constipation, unspecified; Z90.49 Acquired absence of other specified parts of digestive tract; Z79.84 Long term (current) use of oral hypoglycemic drugs; Z79.899 Other long term (current) drug therapy; Z88.0 Allergy status to penicillin
CPT/HCPCS: 36415; 36416; 71275; 72157; 72158; 80048; 80306; 83605; 83735; 84443; 85025; 85652; 86140; 87635; 96365; 96375; A9579; J1650; J1815; J1956; J2060; J2270; J2405; J2550; J3370; J3475; J7512; Q9967; U0003

== ENCOUNTER 2020-02-26 19:30 | Inpatient (IN) | payer MEDICARE, OTHER ==
[2020-02-26] MEDS ORDERED: Nitroglycerin 2% Ointment 1 INCH/1 GM Packet ONE (20:20)
[2020-02-26] MEDS ORDERED: hydrALAZINE 20 MG/ML VIAL ONE ×3 (20:20→21:54)
[2020-02-26 20:24] LABS: #Eosinphils 0.1 thou/uL (0.0-0.7); #Lymphocytes 2.3 thou/uL (1.20-3.40); #Monocytes 0.5 thou/uL (0.11-0.59); #Neutrophils 3.6 thou/uL (1.40-6.50); %Basophils 0.4 % (0.0-1.0); %Eosinophils 1.3 % (0.0-10.0); %Lymphocytes 35.3 % (21.0-51.0); %Monocytes 8.2 % (0.0-10.0); %Neutrophils 54.9 % (42.0-75.0); Hemoglobin 13.8 g/dL (12.0-16.0); Mean Corpuscular HGB CONC 33.4 g/dL (32.0-36.0); Mean Corpuscular Hemoglobin 30.6 pg (27.0-31.0); Mean Corpuscular Volume 91.7 fL (78.0-98.0); Mean Platelet Volume 8.6 fL (7.4-10.4); Platelet Count 160 thou/uL (130-400); RBC Distribution Width 12.1 % (11.5-14.5); Red Blood Cell (RBC) Count 4.52 mill/uL (4.20-5.40); White Blood Cell (WBC) Count 6.5 thou/uL (4.8-10.8)
[2020-02-26 20:42] LABS: ALT (SGPT) 18 U/L (8-55); AST (SGOT) 15 U/L (5-34); Albumin 3.9 g/dL (3.5-5.0); Alkaline Phosphatase 104 U/L (40-110); Anion Gap 16 mmol/L (10-20); BUN (Urea Nitrogen) 18 mg/dL (9.8-20.1); Bilirubin, Total 0.3 mg/dL (0.2-1.2); Calc. Creatinine Clearance 0 mL/min (70-130); Calcium 8.2 mg/dL (7.8-10.44); Carbon Dioxide 23 mmol/L (22-29); Chloride 102 mmol/L (98-107); Estimated GFR-MDRD 54; Globulin 3.5 g/dL (2.4-3.5); Glucose 376 mg/dL (70-105); Potassium 4.2 mmol/L (3.5-5.1); Protein, Total 7.4 g/dL (6.0-8.3); Sodium 137 mmol/L (136-145)
--- NOTE | 2020-02-26 20:50 | CT ---
CT ANGIOGRAM THORAX WITH CONTRAST: (CTA pulmonary angiogram) DATE: 02/26/2020 HISTORY: 59-year-old female with tachycardia and hypoxia TECHNIQUE: IV injection of iodinated contrast. Scan acquisition timing attempted to coincide with iodinated contrast bolus reaching maximal density in pulmonary arteries. 3-D MIP reconstructions. FINDINGS: There is an aberrant right subclavian artery. No thoracic aortic aneurysm, dissection, or rupture. Tr achea and bilateral mainstem bronchi are patent and clear. Left and right main pulmonary arteries, pulmonic trunk, and their proximal branches, demonstrate no thrombus. The bilateral lower lobe distal branches are poorly visualized, because of patient's arms, which was not raised, causing streak artifact. The lungs are essentially clear. No pleural effusion or pneumothorax. No mediastinal or hilar lymphad enopathy. No pericardial effusion or cardiomegaly. IMPRESSION: no pulmonary thromboembolus identified.
[2020-02-26] MEDS ORDERED: Insulin Regular 300 UNITS/3 ML VIAL ONE ×2 (21:20→21:22)
--- NOTE | 2020-02-26 21:39 | ULT ---
ULTRASOUND DOPPLER DUPLEX VENOUS LEFT UPPER EXTREMITY: DATE: 02/26/2020 HISTORY: 59-year-old female with left arm pain and swelling TECHNIQUE: Grayscale, color-flow, and spectral analysis, of the left internal jugular, subclavian, axillary, bra chial, basilic, cephalic, radial, and ulnar, veins. Compression and release applied to all veins except the subclavian. FINDINGS: In the forearm, the left cephalic vein is not visualized. There is an IV catheter in the left cephali c vein in the arm, proximal to the elbow. There is demonstration of blood flow in the subclavian vein. There is demonstration of blood flow and normal compressibility in all other veins. IMPRESSION: 1. No evidence of deep venous thrombosis of left upper extremity. 2. IV catheter in left cephalic vein in arm. 3. Left cephalic vein in forearm not visualized, probably because of small size.
[2020-02-26] MEDS ORDERED: Nitroglycerin 2% Ointment 1 INCH/1 GM Packet TOP PRN (23:22)
[2020-02-26] MEDS ORDERED: HumaLOG 300 UNITS/3 ML VIAL SC PRN (23:28)
[2020-02-26] MEDS ORDERED: hydrALAZINE 20 MG/ML VIAL SLOW IVP PRN (23:28)
[2020-02-26] MEDS ORDERED: Ondansetron ODT 4 MG TAB PO PRN (23:28)
[2020-02-26] MEDS ORDERED: Dextrose 50% Abboject 50 ML SYRINGE SLOW IVP PRN (23:28)
[2020-02-26] MEDS ORDERED: Benzonatate 100 MG CAP PO PRN (23:28)
[2020-02-26] MEDS ORDERED: Dextrose 5% in Water 1,000 ML IV PRN (23:28)
[2020-02-26] MEDS ORDERED: cloNIDine 0.2 MG TAB PO PRN (23:28)
[2020-02-26 23:33] VITALS: BMI 42.7
[2020-02-26 23:35] LABS: Troponin I Less than 0.010 ng/mL (< 0.028)
[2020-02-26] MEDS ORDERED: Nitroglycerin 2% Ointment 1 INCH/1 GM Packet TOP SCH (23:45)
[2020-02-27] MEDS: Ondansetron PF 4 MG/2 ML Vial IVP PRN ×3 (00:16→21:20)
[2020-02-27 02:38] LABS: Troponin I 0.014 ng/mL (< 0.028)
--- NOTE | 2020-02-27 02:45 | HP ---
PRIMARY CARE PROVIDER: Kelsey Rubi M.D. CHIEF COMPLAINT: Headache, facial swelling, and general malaise. HISTORY OF PRESENT ILLNESS: This is a 59-year-old female, who presented to [facility] in transfer from [facility] for facial swelling and general malaise over the last 24 to 48 hours. The patient states she just found out her brother in the last 24 hours and admits to increased stress and emotional duress at the news. The patient was noted by her home health agency with [facility] with elevated blood sugar as well as labile hypertension. The patient denies any change to her chronic medication regimen. States she was recently admitted to [facility] from 01/29/2020 to 02/01/2020 for systemic inflammatory response syndrome as well as acute on chronic back pain. The patient was discharged home on a tapering prednisone dose as well as muscle relaxants and lidocaine patches. The patient states her back pain is intermittent, but has been receiving home health services due to chronic low back pain, limited mobility and assistance with activities of daily living. The patient denied any documented fever, chills, but feels like her heart has been racing and her blood sugar has been difficult to control. The patient denied any exposure history, documented fever, or family members with similar symptoms. In the emergency room, the patient underwent general evaluation, receiving 2 L of intravenous normal saline after meeting criteria for potential sepsis alert. The patient also received IV hydralazine, Novolin R 6 units IV push, and transdermal nitroglycerin for hypertensive urgency. The patient's initial blood pressure was noted in the 220s/140s at the time of presentation. PAST MEDICAL HISTORY: 1. Hypertension. 2. Diabetes mellitus type 2. 3. Coronary artery disease. 4. Hyperlipidemia. 5. Chronic back pain. 6. History of urinary tract infection/SIRS, 01/2020. 7. Peripheral neuropathy. PAST SURGICAL HISTORY: 1. Status post cholecystectomy. 2. Status post lower extremity vein stripping due to varicosities. 3. Status post cleft palate repair. 4. Status post dilation and curettage. 5. Status post breast biopsy. 6. Status post endoscopy. CURRENT MEDICATIONS: Based on discharge summary dated 02/01/2020. 1. Norvasc 2.5 mg p.o. daily. 2. Coreg 25 mg p.o. b.i.d. 3. Clonidine 0.2 mg p.o. b.i.d. 4. Gabapentin 600 mg p.o. t.i.d. 5. Glipizide 10 mg p.o. daily. 6. Metformin 1000 mg p.o. b.i.d. 7. Nystatin powder one application topically b.i.d. ALLERGIES: PENICILLIN. FAMILY HISTORY: Positive for hypertension and diabetes mellitus. SOCIAL HISTORY: Resides in the [place], [place] area. No alcohol, tobacco, or illicit drug use. Ambulates with a rolling walker. Receives home health services with [facility]. REVIEW OF SYSTEMS: CONSTITUTIONAL: Negative for weight loss or gain, ability to conduct usual activities. SKIN: Negative for rash, itching. EYES: Negative for double vision, pain. ENT/MOUTH: Negative for nose bleeding, neck stiffness, pain, tenderness. CARDIOVASCULAR: Negative for palpitations, dyspnea on exertion, orthopnea. RESPIRATORY: Negative for shortness of breath, wheezing, cough, hemoptysis, fever or night sweats. GASTROINTESTINAL: Negative for poor appetite, abdominal pain, heartburn, nausea, vomiting, constipation, or diarrhea. GENITOURINARY: Negative for urgency, frequency, dysuria, nocturia. MUSCULOSKELETAL: Negative for pain, swelling. NEUROLOGIC/PSYCHIATRIC: Negative for anxiety, depression. ALLERGY/IMMUNOLOGIC: Negative for skin rash, bleeding tendency. Otherwise negative except as stated per HPI. PHYSICAL EXAMINATION: VITAL SIGNS: On admission; blood pressure 227/145, pulse 112, respiratory rate is 20, temperature 98.7 degrees Fahrenheit, and O2 saturation is 96% on room air. GENERAL APPEARANCE: This is a 59-year-old female, alert and oriented x3, pleasant, responsive, in mild respiratory distress. HEENT: Pupils are equal, round, and reactive to light and accommodation. Bilateral conjunctival injection noted. Extraocular muscles are intact. No scleral icterus. Nares patent. OP is clear. Teeth in fair repair. NECK: Supple. No cervical adenopathy. No thyromegaly. No carotid bruits. No JVD appreciated. Cervical spine with full active and passive range of motion. No meningeal signs noted. CHEST: Diminished breath sounds bilaterally in the bases. Occasional rhonchi. CARDIOVASCULAR: S1 and S2 without noted murmur, rub, or gallop. Tachycardia noted. ABDOMEN: Obese, soft, nontender, and nondistended. Bowel sounds are positive in all 4 quadrants. There is no hepatosplenomegaly. No abdominal bruits. No rebound or guarding appreciated. EXTREMITIES: Warm and dry with fair turgor. Nonpitting edema to the bilateral upper and lower extremities. Pulses palpable distally at the dorsalis pedis, posterior tibial, and popliteal arteries bilaterally. Capillary refill less than 2 seconds. NEUROLOGIC: Cranial nerves 2 through 12 are grossly intact. No focal or lateralizing signs appreciated. PERTINENT LABORATORY AND X-RAY FINDINGS: Sodium 137, potassium 4.2, chloride 102, CO2 of 23, BUN 18, creatinine 1.04, estimated GFR 54, glucose 376, and calcium 8.2. LFTs within normal limits. CBC within normal limits. Beta-hydroxybutyrate level negative. CT angiogram of the chest dated 02/26/2020, showed no evidence for pulmonary embolus. Portable chest x-ray dated 02/26/2020, showed no acute cardiopulmonary process. Vascular ultrasound of the left upper extremity showed no acute process. EKG dated 02/26/2020, by my interpretation shows sinus tachycardia with heart rates in the 120s. Normal R-wave progression noted in the precordial leads. Left axis deviation. No acute ST-T wave changes appreciated. ASSESSMENT AND PLAN: 1. Hypertensive urgency. The patient will be admitted to the telemetry unit. We will continue hydralazine 20 mg IV q.4 hours as needed for systolic over 170. Continue transdermal nitroglycerin 1 inch topically b.i.d. Add labetalol as needed for systolic, sustaining greater than or equal to 170. Resume home blood pressure regimen once confirmed. Check 2D transthoracic echocardiogram in the a.m. Check serial troponin I. 2. Severe hyperglycemia in the context of diabetes mellitus type 2. We will continue subcutaneous insulin sliding scale for reflexive coverage. Confirm home diabetic regimen. Serial Accu-Cheks before meals and at bedtime. 3. Sinus tachycardia. Suspect multifactorial given the patient's recent loss of her brother. We will continue telemetry monitoring. No current evidence to suggest acute pulmonary embolus. Continue serial troponin I trending. 4. Lactic acidosis. Suspect secondary to hyperglycemia and hypertensive urgency. We will continue serial monitoring. Repeat lactic acid level. No current evidence to suggest acute occult infectious process. 5. Deconditioning. PT evaluation in the a.m. for functional assessment. 6. Prophylaxis. SCDs while in bed. Pepcid 20 mg p.o. b.i.d. CODE STATUS: Full. SURROGATE MEDICAL DECISION MAKER: Carol Ann Bettencourt. Job ID: [id number]
[2020-02-27 03:57] LABS: #Lymphocytes 1.3 thou/uL (1.20-3.40); #Monocytes 0.4 thou/uL (0.11-0.59); #Neutrophils 7.2 thou/uL (1.40-6.50); %Basophils 0.2 % (0.0-1.0); %Eosinophils 0.3 % (0.0-10.0); %Lymphocytes 14.6 % (21.0-51.0); %Monocytes 4.2 % (0.0-10.0); %Neutrophils 80.7 % (42.0-75.0); Hemoglobin 13.9 g/dL (12.0-16.0); Mean Corpuscular HGB CONC 33.7 g/dL (32.0-36.0); Mean Corpuscular Hemoglobin 31.1 pg (27.0-31.0); Mean Corpuscular Volume 92.4 fL (78.0-98.0); Mean Platelet Volume 9.3 fL (7.4-10.4); Platelet Count 148 thou/uL (130-400); RBC Distribution Width 12.2 % (11.5-14.5); Red Blood Cell (RBC) Count 4.47 mill/uL (4.20-5.40)
[2020-02-27] MEDS: Acetaminophen 500 MG TAB PO PRN ×2 (04:05→21:15)
[2020-02-27 04:18] LABS: ALT (SGPT) 16 U/L (8-55); AST (SGOT) 12 U/L (5-34); Albumin 3.6 g/dL (3.5-5.0); Alkaline Phosphatase 98 U/L (40-110); Anion Gap 16 mmol/L (10-20); BUN (Urea Nitrogen) 13 mg/dL (9.8-20.1); Bilirubin, Total 0.3 mg/dL (0.2-1.2); Calc. Creatinine Clearance 134 mL/min (70-130); Calcium 7.9 mg/dL (7.8-10.44); Carbon Dioxide 20 mmol/L (22-29); Chloride 103 mmol/L (98-107); Estimated GFR-MDRD 78; Globulin 3.2 g/dL (2.4-3.5); Glucose 370 mg/dL (70-105); Potassium 4.2 mmol/L (3.5-5.1); Protein, Total 6.8 g/dL (6.0-8.3); Sodium 135 mmol/L (136-145)
[2020-02-27] MEDS: HumaLOG 300 UNITS/3 ML VIAL SC PRN ×2 (05:38→11:21)
[2020-02-27] MEDS: Carvedilol 25 MG TAB PO SCH ×2 (08:47→17:22)
[2020-02-27] MEDS: glipiZIDE 10 MG TAB PO SCH (08:47)
[2020-02-27] MEDS: Famotidine 20 MG TAB PO SCH ×2 (08:48→21:14)
[2020-02-27] MEDS: Amlodipine 5 MG TAB PO SCH (08:48)
[2020-02-27] MEDS: Gabapentin 300 MG CAP PO SCH ×3 (08:48→21:14)
[2020-02-27] MEDS ORDERED: Nitroglycerin 2% Ointment 1 INCH/1 GM Packet TOP SCH (09:00)
[2020-02-27] MEDS ORDERED: metFORMIN 500 MG TAB PO SCH (09:45)
[2020-02-27] MEDS ORDERED: Empagliflozin 10 MG TAB PO SCH (09:45)
[2020-02-27] MEDS: Lidocaine 5% Patch TD SCH (10:17)
[2020-02-27] MEDS: HYDROcodone/Acetaminophen 5/325 mg Tablet PO PRN ×2 (11:20→17:22)
[2020-02-27 15:08] LABS: SARS-CoV-2 MS2 Positive; SARS-CoV-2 N Gene Negative; SARS-CoV-2 S Gene Negative; SARS-CoV-2 by NAA Not Detected (NotDetected); SARS-CoV-2 orf1ab Negative
[2020-02-27] MEDS: hydrALAZINE 25 MG TAB PO SCH ×2 (15:20→21:14)
[2020-02-27] MEDS: metFORMIN 500 MG TAB PO SCH (17:22)
--- NOTE | 2020-02-27 19:39 | PDOC.HOSPP ---
- Subjective Encounter Date: 02/27/20 Encounter Time: 11:00 Subjective: The patient states her face is still swollen. It is not painful but it is red, which she says may be from chronic rosacea. She denies itchiness. Her brother yesterday. is going to be tomorrow or Saturday but she doesn't want to infante to get out of the hospital. She states her family is in [place] She reports shakiness and does not know why. She was started on tizanidine and gabapentin three weeks ago for musculoskeletal pain. She denies having any allergies to this. She did take prednisone on last discharge, but finished it three weeks ago She had some nausea and threw up early this morning since the nitro-patch gave her a headache - Objective Vital Signs & Weight: Vital Signs (12 hours) Temp Pulse Pulse Resp BP BP BP 02/27/20 15:10 98.7 F 87 18 126/70 02/27/20 13:21 79 110/65 134/72 02/27/20 11:35 98.2 F 85 20 119/65 02/27/20 07:55 98.2 F 105 H 22 H 135/68 Pulse Ox 02/27/20 15:10 96 02/27/20 13:21 02/27/20 11:35 96 02/27/20 07:55 95 Weight Weight 234 lb I&O: 02/26/20 02/27/20 02/28/20 06:59 06:59 06:59 Intake Total 300 1200 Output Total 1300 750 Balance -1000 450 Result Diagrams: 02/27/20 03:43 02/27/20 03:43 Additional Labs: Accuchecks 02/27/20 02/27/20 02/27/20 17:14 10:48 06:06 POC Glucose 103 H 266 H 366 H 02/26/20 02/26/20 21:36 19:44 POC Glucose 339 H 370 H Hospitalist ROS - Review of Systems Constitutional: denies: fever, chills - Medication Medications: Active Medications Generic Name Dose Route Start Last Admin Trade Name Freq PRN Reason Stop Dose Admin Acetaminophen 1,000 mg 02/26/20 23:28 02/27/20 04:05 Acetaminophen 500 Mg Tab PO 1,000 mg Q6H PRN Administration Mild Pain (1-3) Hydrocodone Bitart/Acetaminophen 1 tab 02/27/20 10:57 02/27/20 17:22 Hydrocodone/Acetaminophen 5/325 Mg Tablet PO 1 tab Q6H PRN Administration Moderate to Severe Pain (6-10) Amlodipine Besylate 2.5 mg 02/27/20 09:00 02/27/20 08:48 Amlodipine 5 Mg Tab PO 2.5 mg QAM BRENDA Administration Carvedilol 25 mg 02/27/20 08:00 02/27/20 17:22 Carvedilol 25 Mg Tab PO 25 mg BID-WM BRENDA Administration Clonidine 0.2 mg 02/26/20 23:28 02/27/20 04:05 Clonidine 0.2 Mg Tab PO 0.2 mg BIDPRN PRN Administration SBP >= 180 Famotidine 20 mg 02/27/20 09:00 02/27/20 08:48 Famotidine 20 Mg Tab PO 20 mg BID BRENDA Administration Gabapentin 600 mg 02/27/20 09:00 02/27/20 15:20 Gabapentin 300 Mg Cap PO 600 mg TID BRENDA Administration Glipizide 10 mg 02/27/20 08:00 02/27/20 08:47 Glipizide 10 Mg Tab PO 10 mg QAM-WM BRENDA Administration Hydralazine HCl 50 mg 02/27/20 15:00 02/27/20 15:20 Hydralazine 25 Mg Tab PO 50 mg TID BRENDA Administration Insulin Human Lispro 0 units 02/26/20 23:28 02/27/20 11:21 Humalog 300 Units/3 Ml Vial SC 9 unit .AGGRESSIVE SLIDING PRN Administration Aggressive Correctional Scale Lidocaine 2 patch 02/27/20 10:00 02/27/20 10:17 Lidocaine 5% Patch TD 2 patch 1000 BRENDA Administration Metformin HCl 1,000 mg 02/27/20 17:00 02/27/20 17:22 Metformin 500 Mg Tab PO 1,000 mg BID-WM BRENDA Administration Nitroglycerin 1 inch 02/27/20 09:00 02/27/20 09:35 Nitroglycerin 2% Ointment 1 Inch/1 Gm Packet TOP Not Given BID BRENDA Ondansetron HCl 4 mg 02/26/20 23:28 02/27/20 08:49 Ondansetron Pf 4 Mg/2 Ml Vial IVP 4 mg Q6H PRN Administration Nausea/Vomiting - Exam General Appearance: NAD, awake alert General - other findings: face appears slightly edematous ENT: normocephalic atraumatic, no oropharyngeal lesions Neck: supple, symmetric, no JVD Heart: RRR, no murmur, no gallops, no rubs Respiratory: CTAB, no wheezes, no rales, no ronchi Gastrointestinal: soft, non-tender, non-distended Extremities: no edema Skin - other findings: face appears flushed. She has dry peeling skin on face Neurological: cranial nerve grossly intact, normal sensation to touch, no focal deficits, no new deficit Hosp A/P - Plan ECHO: reviewed and normal CTA thorax: no PE, aberrant right subclavian US Lower extremity: no DVT This is a 59 year old female who presented with facial swelling, elevated BP and blood sugar Hypertensive urgency - improved - will d/c nitro patch since patient can't tolerate - continue coreg and amlodipine - ECHO normal Type II diabetes - resume metformin, januvia and glipizide Facial swelling - unclear etiology. She has been off steroids for three weeks - will hold tizanidine in event it is allergic reaction - will trial of claritin - ECHO was normal Back pain - continue gabapentin tid - continue lidocaine patch - continue norco - try to hold tizanidine
[2020-02-27] MEDS: Atorvastatin Calcium 10 MG TAB PO SCH (21:15)
[2020-02-27] MEDS: Lidocaine Patch Removal 1 EACH TOP SCH (22:45)
[2020-02-28] MEDS: HumaLOG 300 UNITS/3 ML VIAL SC PRN ×2 (06:07→11:23)
[2020-02-28] MEDS: Acetaminophen 500 MG TAB PO PRN (07:10)
[2020-02-28] MEDS: Gabapentin 300 MG CAP PO SCH ×3 (08:42→19:48)
[2020-02-28] MEDS: metFORMIN 500 MG TAB PO SCH ×2 (08:42→17:46)
[2020-02-28] MEDS: Famotidine 20 MG TAB PO SCH ×2 (08:42→19:48)
[2020-02-28] MEDS: glipiZIDE 10 MG TAB PO SCH (08:42)
[2020-02-28] MEDS: Amlodipine 5 MG TAB PO SCH (08:43)
[2020-02-28] MEDS: hydrALAZINE 25 MG TAB PO SCH (08:43)
[2020-02-28] MEDS: Carvedilol 25 MG TAB PO SCH ×2 (08:43→17:45)
[2020-02-28] MEDS: Empagliflozin 10 MG TAB PO SCH (08:43)
[2020-02-28] MEDS: Ondansetron PF 4 MG/2 ML Vial IVP PRN ×2 (11:03→16:29)
[2020-02-28] MEDS: Lidocaine 5% Patch TD SCH (11:03)
[2020-02-28] MEDS ORDERED: Carvedilol 25 MG TAB PO SCH (11:06)
[2020-02-28] MEDS ORDERED: Sodium Chloride 0.9% 250 ML IV SCH (11:15)
[2020-02-28] MEDS ORDERED: diphenhydrAMINE 25 MG CAP PO SCH (11:15)
[2020-02-28] MEDS ORDERED: Ketorolac Tromethamine 30 MG/ML VIAL IVP SCH (11:15)
--- NOTE | 2020-02-28 12:03 | CT ---
CT BRAIN WITHOUT CONTRAST: HISTORY: Headache and dizziness. COMPARISON: None. TECHNIQUE: Multiple contiguous axial images were obtained in a CT of the brain without contrast. FINDINGS: There are scattered hypodensities in the subcortical and periventricular white matter, likely seconda ry to small vessel ischemic disease. A cavum septum pellucidum is incidentally seen. There is no evid ence of hydrocephalus, intracranial hemorrhage or extraaxial fluid collection. The calvarium is unremarkable. There appears to be a lipoma of the right forehead. The visualized par anasal sinuses and mastoid air cells are well aerated. IMPRESSION: No evidence of acute intracranial abnormality. POS: EAA
--- NOTE | 2020-02-28 15:07 | PDOC.HOSPP ---
- Subjective Encounter Date: 02/28/20 Encounter Time: 08:30 Subjective: The patient was noted to have a low blood pressure of 80 while sitting up which improved while laying down. She did experienced some dizziness. Patient reports severe headache while laying flat in bed and cannot lay down for too long. She is still nauseous. Patient's relative states that she has had this happen before in the past and sometimes happened when her blood pressure fluctuates - Objective Vital Signs & Weight: Vital Signs (12 hours) Temp Pulse Resp BP BP Pulse Ox 02/28/20 11:08 97.5 F L 86 20 123/64 92 L 02/28/20 10:30 101/49 L 02/28/20 10:20 83/51 L 02/28/20 08:43 88 02/28/20 08:10 98.2 F 88 20 142/70 H 94 L 02/28/20 04:55 98.5 F 91 18 134/82 95 Weight Weight 229 lb 14.4 oz I&O: 02/27/20 02/28/20 02/29/20 06:59 06:59 06:59 Intake Total 300 1400 Output Total 1300 1250 Balance -1000 150 Result Diagrams: 02/27/20 03:43 02/27/20 03:43 Additional Labs: Accuchecks 02/28/20 02/27/20 02/27/20 05:43 20:32 17:14 POC Glucose 154 H 184 H 103 H Hospitalist ROS - Review of Systems Constitutional: denies: fever, chills - Medication Medications: Active Medications Generic Name Dose Route Start Last Admin Trade Name Freq PRN Reason Stop Dose Admin Acetaminophen 1,000 mg 02/26/20 23:28 02/28/20 07:10 Acetaminophen 500 Mg Tab PO 1,000 mg Q6H PRN Administration Mild Pain (1-3) Hydrocodone Bitart/Acetaminophen 1 tab 02/27/20 10:57 02/27/20 17:22 Hydrocodone/Acetaminophen 5/325 Mg Tablet PO 1 tab Q6H PRN Administration Moderate to Severe Pain (6-10) Atorvastatin Calcium 10 mg 02/27/20 21:00 02/27/20 21:15 Atorvastatin Calcium 10 Mg Tab PO 10 mg HS BRENDA Administration Famotidine 20 mg 02/27/20 09:00 02/28/20 08:42 Famotidine 20 Mg Tab PO 20 mg BID BRENDA Administration Gabapentin 600 mg 02/27/20 09:00 02/28/20 08:42 Gabapentin 300 Mg Cap PO 600 mg TID BRENDA Administration Glipizide 10 mg 02/27/20 08:00 02/28/20 08:42 Glipizide 10 Mg Tab PO 10 mg QAM-WM BRENDA Administration Insulin Human Lispro 0 units 02/26/20 23:28 02/28/20 11:23 Humalog 300 Units/3 Ml Vial SC 3 unit .AGGRESSIVE SLIDING PRN Administration Aggressive Correctional Scale Lidocaine 2 patch 02/27/20 10:00 02/28/20 11:03 Lidocaine 5% Patch TD 2 patch 1000 BRENDA Administration Metformin HCl 1,000 mg 02/27/20 17:00 02/28/20 08:42 Metformin 500 Mg Tab PO 1,000 mg BID-WM BRENDA Administration Miscellaneous Medication 10 mg 02/28/20 09:00 02/28/20 08:43 Empagliflozin 10 Mg Tab PO 10 mg DAILY BRENDA Administration Miscellaneous Medication 2 each 02/27/20 22:00 02/27/20 22:45 Lidocaine Patch Removal 1 Each TOP Not Given [address] [facility] Ondansetron HCl 4 mg 02/26/20 23:28 02/28/20 11:03 Ondansetron Pf 4 Mg/2 Ml Vial IVP 4 mg Q6H PRN Administration Nausea/Vomiting - Exam General Appearance: NAD, awake alert Eye: PERRL, anicteric sclera ENT: normocephalic atraumatic, no oropharyngeal lesions Neck: no JVD Heart: RRR, no murmur, no gallops, no rubs Respiratory: CTAB, no wheezes, no rales, no ronchi Gastrointestinal: soft, non-tender, non-distended, normal bowel sounds Extremities: no cyanosis, no clubbing, no edema Skin - other findings: face appears flushed, lips slightly blue Neurological: cranial nerve grossly intact, normal sensation to touch, no focal deficits, no new deficit Musculoskeletal: normal tone, normal strength, no muscle wasting Hosp A/P - Plan ECHO: reviewed and normal CTA thorax: no PE, aberrant right subclavian US Lower extremity: no DVT This is a 59 year old female who presented with facial swelling, elevated BP and blood sugar Hypotension - initially admitted for hypertensive urgency and was on nitro patch. Discontinued 02/19 - BP 80 today, given bolus of fluids - will reduce coreg to 12.5 mg bid - discontinue amlodipine - discontinue hydralazine. Hold tizanidine - will monitor BP for 24 hours and reassess - ECHO normal Headache - possibly cervicogenic - CT head shows no acute disease. Carotid dopplers negative. She has pain laying down possibly from cervical arthritis - ordered benadryl and zofran -continue with physical therapy Mild cyanosis of lips - will check vBG Type II diabetes - continue metformin, januvia and glipizide - no signs of DKA Facial swelling Rosacea - unclear etiology. She has been off steroids for three weeks - continue to hold tizanidine - continue claritin - ECHO was normal Back pain - continue gabapentin tid - continue lidocaine patch - continue norco - try to hold tizanidine
[2020-02-28] MEDS: HYDROcodone/Acetaminophen 5/325 mg Tablet PO PRN (16:24)
[2020-02-28 16:28] LABS: Actual Bicarbonate (HCO3v) 27 mEq/L (22-28); Base Excess -0.5 mEq/L (-2.0 to +3.0); Calcium, Ionized (venous) 1.08 mmol/L (1.16-1.32); Chloride (ABG LAB) 101 mmol/L (98-106); Hemoglobin (Hb) 14.6 g/dL (11.7-16.0); Sodium 136.8 mmol/L (133-146)
--- NOTE | 2020-02-28 19:02 | ULT ---
ULTRASOUND DOPPLER DUPLEX CAROTID: DATE: 02/28/2020 HISTORY: 59-year-old female with dizziness TECHNIQUE: Grayscale, color-flow, and spectral analysis, of major arteries of neck. FINDINGS: RIGHT: Because of body habitus (short and thick neck) and very deep location of carotid arteries, especially carotid bulbs, the bilateral internal carotid arteries are not visualized. The vertebral arteries are also not visualized. Bilateral common carotid arteries are patent, with mild atherosclerotic changes. IMPRESSION: Very Limited, essentially nondiagnostic study due to body habitus. Nonvisualization of internal carot id arteries and vertebral arteries.
[2020-02-28] MEDS: Atorvastatin Calcium 10 MG TAB PO SCH (19:48)
[2020-02-28] MEDS: Lidocaine Patch Removal 1 EACH TOP SCH (19:49)
[2020-02-28] MEDS ORDERED: Metoclopramide HCl 10 MG/2 ML VIAL IVP SCH (21:00)
[2020-02-29] MEDS: diphenhydrAMINE 25 MG CAP PO PRN (02:13)
[2020-02-29] MEDS: HYDROcodone/Acetaminophen 5/325 mg Tablet PO PRN ×2 (06:50→20:05)
[2020-02-29] MEDS: HumaLOG 300 UNITS/3 ML VIAL SC PRN ×2 (07:01→11:35)
[2020-02-29] MEDS: Carvedilol 25 MG TAB PO SCH ×2 (08:37→16:09)
[2020-02-29] MEDS: Gabapentin 300 MG CAP PO SCH (08:38)
[2020-02-29] MEDS: Famotidine 20 MG TAB PO SCH ×2 (08:38→20:06)
[2020-02-29] MEDS: metFORMIN 500 MG TAB PO SCH ×2 (08:38→16:09)
[2020-02-29] MEDS: glipiZIDE 10 MG TAB PO SCH (08:39)
[2020-02-29] MEDS: Empagliflozin 10 MG TAB PO SCH (08:39)
[2020-02-29] MEDS: Lidocaine 5% Patch TD SCH (09:24)
[2020-02-29 13:10] LABS: Hemoglobin 13.2 g/dL (12.0-16.0); Mean Corpuscular HGB CONC 32.4 g/dL (32.0-36.0); Mean Corpuscular Volume 92.6 fL (78.0-98.0); Mean Platelet Volume 8.6 fL (7.4-10.4); Platelet Count 180 thou/uL (130-400); RBC Distribution Width 12.3 % (11.5-14.5); Red Blood Cell (RBC) Count 4.41 mill/uL (4.20-5.40); White Blood Cell (WBC) Count 7.8 thou/uL (4.8-10.8)
[2020-02-29 13:28] LABS: ALT (SGPT) 14 U/L (8-55); AST (SGOT) 17 U/L (5-34); Albumin 3.5 g/dL (3.5-5.0); Alkaline Phosphatase 82 U/L (40-110); Anion Gap 11 mmol/L (10-20); BUN (Urea Nitrogen) 19 mg/dL (9.8-20.1); Bilirubin, Total 0.3 mg/dL (0.2-1.2); Calc. Creatinine Clearance 135 mL/min (70-130); Carbon Dioxide 26 mmol/L (22-29); Chloride 103 mmol/L (98-107); Estimated GFR-MDRD 80; Glucose 99 mg/dL (70-105); Potassium 3.8 mmol/L (3.5-5.1); Protein, Total 6.5 g/dL (6.0-8.3); Sodium 136 mmol/L (136-145)
--- NOTE | 2020-02-29 14:36 | PDOC.HOSPP ---
- Subjective Encounter Date: 02/29/20 Encounter Time: 10:00 Subjective: The patient states her headache resolved with norco this morning. She says she only has mild pain. She still feels off. She stood up today with PT and was very dizzy and was only able to stand for 20 seconds. Her orthostatics were negative, BP 133 laying and standing. She has pain moving her neck Patient has been receiving gabapentin 600 mg tid, discussed plan to reduce dose to 100 mg prn. Sister has concerns of memory impairment and patient asking the same questions repeatedly. Patient also has tremor on her left arm, occasionally at rest, occasionally on movement, but sister feels it is getting worst. 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 Patient's sister states her sister and mother from dementia Patient's sister states that she was getting PT daily for 7 days and had some improvement with that. She wants to take her home to [place] upon discharge, but discussed that she will possibly need rehab which they are agreeable to. - Objective Vital Signs & Weight: Vital Signs (12 hours) Temp Pulse Pulse Resp BP BP BP 02/29/20 11:38 84 136/75 134/77 02/29/20 11:23 98.1 F 84 20 02/29/20 07:18 99.4 F 93 20 158/73 H BP Pulse Ox 02/29/20 11:38 02/29/20 11:23 134/64 93 L 02/29/20 07:18 92 L Weight Weight 231 lb I&O: 02/28/20 02/29/20 03/01/20 06:59 06:59 06:59 Intake Total 1400 2080 Output Total 1250 1050 Balance 150 1030 Result Diagrams: 02/29/20 12:54 02/29/20 12:54 Additional Labs: Accuchecks 02/29/20 02/29/20 02/28/20 10:57 06:20 20:34 POC Glucose 159 H 151 H 116 H 02/28/20 02/28/20 16:55 10:29 POC Glucose 121 H 191 H Hospitalist ROS - Review of Systems Constitutional: denies: fever, chills - Medication Medications: Active Medications Generic Name Dose Route Start Last Admin Trade Name Freq PRN Reason Stop Dose Admin Acetaminophen 1,000 mg 02/26/20 23:28 02/28/20 07:10 Acetaminophen 500 Mg Tab PO 1,000 mg Q6H PRN Administration Mild Pain (1-3) Hydrocodone Bitart/Acetaminophen 1 tab 02/27/20 10:57 02/29/20 06:50 Hydrocodone/Acetaminophen 5/325 Mg Tablet PO 1 tab Q6H PRN Administration Moderate to Severe Pain (6-10) Atorvastatin Calcium 10 mg 02/27/20 21:00 02/28/20 19:48 Atorvastatin Calcium 10 Mg Tab PO 10 mg HS BRENDA Administration Carvedilol 12.5 mg 02/28/20 17:00 02/29/20 08:37 Carvedilol 25 Mg Tab PO 12.5 mg BID-WM BRENDA Administration Diphenhydramine HCl 25 mg 02/28/20 11:07 02/29/20 02:13 Diphenhydramine 25 Mg Cap PO 25 mg Q6H PRN Administration Itching & Insomnia Famotidine 20 mg 02/27/20 09:00 02/29/20 08:38 Famotidine 20 Mg Tab PO 20 mg BID BRENDA Administration Glipizide 10 mg 02/27/20 08:00 02/29/20 08:39 Glipizide 10 Mg Tab PO 10 mg QAM-WM BRENDA Administration Insulin Human Lispro 0 units 02/26/20 23:28 02/29/20 11:35 Humalog 300 Units/3 Ml Vial SC 3 unit .AGGRESSIVE SLIDING PRN Administration Aggressive Correctional Scale Lidocaine 2 patch 02/27/20 10:00 02/29/20 09:24 Lidocaine 5% Patch TD 2 patch 1000 BRENDA Administration Metformin HCl 1,000 mg 02/27/20 17:00 02/29/20 08:38 Metformin 500 Mg Tab PO 1,000 mg BID-WM BRENDA Administration Miscellaneous Medication 10 mg 02/28/20 09:00 02/29/20 08:39 Empagliflozin 10 Mg Tab PO 10 mg DAILY BRENDA Administration Miscellaneous Medication 2 each 02/27/20 22:00 02/28/20 19:49 Lidocaine Patch Removal 1 Each TOP Not Given 2200 [facility] Ondansetron HCl 4 mg 02/26/20 23:28 02/28/20 16:29 Ondansetron Pf 4 Mg/2 Ml Vial IVP 4 mg Q6H PRN Administration Nausea/Vomiting - Exam General Appearance: NAD, awake alert General - other findings: masked facies Eye: PERRL, anicteric sclera ENT: normocephalic atraumatic, no oropharyngeal lesions Neck: no JVD Heart: RRR, no murmur, no gallops, no rubs Respiratory: CTAB, no wheezes, no rales, no ronchi Gastrointestinal: soft, non-tender, non-distended, normal bowel sounds Extremities: no cyanosis, no clubbing, no edema Skin - other findings: facial erythema has decreased. Dry scaly skin. Rosacea Neurological - other findings: left hand tremor noted at rest, occasionally on moving Musculoskeletal: normal tone, normal strength Musculoskeletal - other findings: dizziness with standing Psychiatric: normal affect, normal behavior, A&O x 3 Hosp A/P - Plan ECHO: reviewed and normal CTA thorax: no PE, aberrant right subclavian US Lower extremity: no DVT This is a 59 year old female who presented with facial swelling, elevated BP and blood sugar #Hypertensive urgency/Hypotension - BP improved to 130. Her hydralazine, tizanidine and amlodipine has been discontinued - continue coreg 12.5 mg bid - ECHO normal #Headache - possibly cervicogenic - CT head shows no acute disease. Carotid dopplers negative. She has pain laying down possibly from cervical arthritis. She received reglan and toradol prn yesterday - continue with gabapentin prn #Hand tremor - occasionally at rest, versus sometimes on movement. May have Parkinsons vs essential tremor - neurology has been consulted #Memory impairment #History of Moebius syndrome - CT brain showed no acute pathology. Unclear if can tolerate MRI brain due to pain laying flat - may have early dementia vs from Moebius syndrome. Explained to sister she will likely need outpatient geriatrics/neuro workup #Facial swelling - improved #Rosacea - face still swollen but not painful. Possibly from rosacea. She has been off steroids for three weeks -claritin prn for allergies Back pain/Neck pain - MRI cervical spine 2018 shows variable multilevel foraminal stenosis . T- spine and L-spine unremarkable 01/2020 - 02/28: Will recheck MRI cervical spine. Decrease gabapentin to 100 mg tid prn. PT has been evaluating patient, appears to need rehab since unable to stand . Continue lidocaine patch. Try to limit norco if possible Mild cyanosis of lips -vBG unremarkable Type II diabetes - continue metformin, januvia and glipizide - no signs of DKA Disposition: case management consulted. Patient and sister agreeable to rehab. Re-evaluate need for rehab if decrease in event she ambulates better with decrease in gabapentin dose
--- NOTE | 2020-02-29 14:44 | CON ---
NEUROLOGY CONSULTATION DATE OF CONSULTATION: 02/29/2020 REASON FOR CONSULTATION: Headache, tremors, generalized weakness. HISTORY OF PRESENT ILLNESS: Ms. Homa Fair is a 59-year-old female with history significant for hypertension, diabetes, coronary artery disease, hyperlipidemia, chronic back pain, peripheral neuropathy, presented to the emergency room after transferred from [place] emergency room with facial swelling and generalized malaise for 24 to 48 hours. The patient does admit that she has been under extreme amount of stress since her brother few days ago and since then her blood pressure has been uncontrolled and also her blood sugar. The patient does report headache, which has been better since admission and currently rates it as 3.5/10. She does complain of neck stiffness, but denies any focal weakness, focal paresthesias, chest pain, abdominal pain, problems with speech or swallowing. She does report tremors and there is a concern about Parkinson disease, but unilateral tremors were not observed during the consultation. In the emergency room on 02/25, she was found to have hypertensive emergency and blood pressure was in 220s/120s, which was controlled with hypertensives and which resulted in some episodes of the lightheadedness and dizziness. REVIEW OF SYSTEMS: All 14 systems were reviewed and were negative except the pertinent positive and negative mentioned in the HPI. PAST MEDICAL HISTORY: Hypertension, diabetes, coronary artery disease, hyperlipidemia, chronic back pain, peripheral neuropathy. PAST SURGICAL HISTORY: Status post cholecystectomy, status post lower extremity vein stripping due to varicose veins, status post cleft palate repair, status post breast biopsy, and status post endoscopy. HOME MEDICATIONS: 1. Norvasc 2.5 mg daily. 2. Coreg 25 mg twice daily. 3. Clonidine 0.25 mg b.i.d. 4. Gabapentin 600 mg p.o. t.i.d. 5. Glipizide 10 mg p.o. daily. 6. Metformin 1000 mg p.o. b.i.d. 7. Nystatin powder. ALLERGIES: PENICILLIN. FAMILY HISTORY: Significant for hypertension and diabetes. SOCIAL HISTORY: The patient lives in [place]. Denies smoking, alcohol, or illegal drug use. She walks with the help of a rolling walker. She does have Home Health Services at home. - Objective Vital Signs & Weight: Vital Signs (12 hours) Temp Pulse Pulse Resp BP BP BP 02/29/20 11:38 84 136/75 134/77 02/29/20 11:23 98.1 F 84 20 02/29/20 07:18 99.4 F 93 20 158/73 H BP Pulse Ox 02/29/20 11:38 02/29/20 11:23 134/64 93 L 02/29/20 07:18 92 L Weight Weight 231 lb I&O: 02/28/20 02/29/20 03/01/20 06:59 06:59 06:59 Intake Total 1400 2080 Output Total 1250 1050 Balance 150 1030 Additional Labs: Accuchecks 02/29/20 02/29/20 02/28/20 10:57 06:20 20:34 POC Glucose 159 H 151 H 116 H 02/28/20 02/28/20 16:55 10:29 POC Glucose 121 H 191 H Active Medications Generic Name Dose Route Start Last Admin Trade Name Freq PRN Reason Stop Dose Admin Acetaminophen 1,000 mg 02/26/20 23:28 02/28/20 07:10 Acetaminophen 500 Mg Tab PO 1,000 mg Q6H PRN Administration Mild Pain (1-3) Hydrocodone Bitart/Acetaminophen 1 tab 02/27/20 10:57 02/29/20 06:50 Hydrocodone/Acetaminophen 5/325 Mg Tablet PO 1 tab Q6H PRN Administration Moderate to Severe Pain (6-10) Atorvastatin Calcium 10 mg 02/27/20 21:00 02/28/20 19:48 Atorvastatin Calcium 10 Mg Tab PO 10 mg HS BRENDA Administration Carvedilol 12.5 mg 02/28/20 17:00 02/29/20 08:37 Carvedilol 25 Mg Tab PO 12.5 mg BID-WM BRENDA Administration Diphenhydramine HCl 25 mg 02/28/20 11:07 02/29/20 02:13 Diphenhydramine 25 Mg Cap PO 25 mg Q6H PRN Administration Itching & Insomnia Famotidine 20 mg 02/27/20 09:00 02/29/20 08:38 Famotidine 20 Mg Tab PO 20 mg BID BRENDA Administration Glipizide 10 mg 02/27/20 08:00 02/29/20 08:39 Glipizide 10 Mg Tab PO 10 mg QAM-WM BRENDA Administration Insulin Human Lispro 0 units 02/26/20 23:28 02/29/20 11:35 Humalog 300 Units/3 Ml Vial SC 3 unit .AGGRESSIVE SLIDING PRN Administration Aggressive Correctional Scale Lidocaine 2 patch 02/27/20 10:00 02/29/20 09:24 Lidocaine 5% Patch TD 2 patch 1000 BRENDA Administration Metformin HCl 1,000 mg 02/27/20 17:00 02/29/20 08:38 Metformin 500 Mg Tab PO 1,000 mg BID-WM BRENDA Administration Miscellaneous Medication 10 mg 02/28/20 09:00 02/29/20 08:39 Empagliflozin 10 Mg Tab PO 10 mg DAILY BRENDA Administration Miscellaneous Medication 2 each 02/27/20 22:00 02/28/20 19:49 Lidocaine Patch Removal 1 Each TOP Not Given 2200 [facility] Ondansetron HCl 4 mg 02/26/20 23:28 02/28/20 16:29 Ondansetron Pf 4 Mg/2 Ml Vial IVP 4 mg Q6H PRN Administration Nausea/Vomiting PHYSICAL EXAMINATION: General Appearance: NAD, awake alert Eye: PERRL, anicteric sclera ENT: normocephalic atraumatic, no oropharyngeal lesions Neck: no JVD Heart: RRR, no murmur, no gallops, no rubs Respiratory: CTAB, no wheezes, no rales, no ronchi Gastrointestinal: soft, non-tender, non-distended, normal bowel sounds Extremities: no cyanosis, no clubbing, no edema Skin - other findings: facial erythema has decreased. Dry scaly skin. Rosacea Neurological - : Mental status, the patient is alert and oriented to person, place, and time. Speech is clear. Cranial nerves 2 through 12 intact. Motor; muscle tone and bulk are normal. Strength 5/5 bilaterally. Sensory, decreased sensation to light touch in a stocking distribution. Cerebellar, finger-nose testing intact. Gait deferred due to the patient's safety reason. DATA REVIEWED: I reviewed the head CT, which was negative for acute intracranial pathology. Carotid Dopplers were also negative for hemodynamically significant stenosis, but limited study due to body habitus. Echocardiogram showed ejection fraction of 55% to 60%, no thrombus or PFO. ASSESSMENT AND PLAN: Ms. Homa Fair is a 59-year-old female, consulted for generalized malaise and headache, which is now almost resolved and it is 3.5 /10 with the current treatment. Continue headache control per Primary Team. As far as Parkinson's is concerned, the patient did not have typical unilateral tremor at all times but reported by nursing staff and patient herself. Postural instability and gait unfortunately could not be assessed due to the patient's safety reason. Cogwheel rigidity could not be elicited. The Parkinson disease and extensive dementia workup should be done as outpatient once she is stable in a Neurology Clinic. We will not recommend starting Sinemet based on current exam in the midst of acute issues due to side-effetcs. Continue neuro checks every 4 hours. Continue medical management per primary team. Plan discussed in detail with the patient. Job ID: [id number]
--- NOTE | 2020-02-29 15:42 | MRI ---
MRI Cervical spine without contrast: HISTORY: Neck pain, headache, history of spinal stenosis. Generalized weakness. COMPARISON: 11/13/2018 FINDINGS: The craniocervical junction is unremarkable. No significant cord signal abnormality. Paravertebral soft tissues have a normal appearance and normal signal intensity. Again noted are multilevel degenerative changes. C1-2:No significant stenosis. C2-3: There is no disc bulge or disc herniation. The central spinal canal and neural foramina are pat ent. C3-4: Minimal disc osteophyte complex is present with flattening of the anterior aspect of the thecal sac. There are facet degenerative changes noted. Mild right and moderate left-sided neural foraminal narrowing is present. Small subcentimeter increased T2-weighted signal intensity focus is s een adjacent to the left facet joint which may represent a small synovial cyst. This was also seen on prior study. C4-5: Broad-based disc osteophyte, again seen similar to prior study with mild facet hypertrophic apryl nges. Severe bilateral neural foraminal narrowing is present greater on the left. Moderate generalized narrowing of the central spinal canal is present with flattening the anterior aspect of t he spinal cord.. C5-6: Broad-based disc osteophyte complex again present. Again, there is moderate central canal narro wing with flattening of the anterior aspect of the spinal cord. Mild left and mild to moderate right-sided neural foraminal narrowing is present. This is similar to prior study. C6-7: Broad-based disc osteophyte complex with mild endplate degenerative changes. Generalized mild t o moderate central canal narrowing is present. Severe left and moderate to severe right-sided neural foraminal narrowing is present. C7-T1: Minimal disc osteophyte complex with central disc protrusion similar to prior exam. This does result in mild flattening of the central aspect of the ventral subarachnoid space without mass effect on the spinal cord. Neural foramina are patent. IMPRESSION: Multilevel degenerative changes throughout the cervical spine not significantly progressed when kristie red to prior study. Varying degrees of neural foraminal narrowing are present.
[2020-02-29] MEDS: Atorvastatin Calcium 10 MG TAB PO SCH (20:06)
[2020-02-29] MEDS: Lidocaine Patch Removal 1 EACH TOP SCH (20:06)
[2020-03-01] MEDS: HYDROcodone/Acetaminophen 5/325 mg Tablet PO PRN ×3 (01:53→17:21)
[2020-03-01] MEDS: Cyclobenzaprine 10 MG TAB PO PRN (01:53)
[2020-03-01 04:46] LABS: Hemoglobin 12.9 g/dL (12.0-16.0); Mean Corpuscular HGB CONC 33.8 g/dL (32.0-36.0); Mean Corpuscular Hemoglobin 31.2 pg (27.0-31.0); Mean Corpuscular Volume 92.2 fL (78.0-98.0); Mean Platelet Volume 9.1 fL (7.4-10.4); Platelet Count 153 thou/uL (130-400); RBC Distribution Width 12.3 % (11.5-14.5); Red Blood Cell (RBC) Count 4.14 mill/uL (4.20-5.40); White Blood Cell (WBC) Count 6.6 thou/uL (4.8-10.8)
[2020-03-01 05:08] LABS: Anion Gap 12 mmol/L (10-20); BUN (Urea Nitrogen) 17 mg/dL (9.8-20.1); Calc. Creatinine Clearance 143 mL/min (70-130); Calcium 7.8 mg/dL (7.8-10.44); Carbon Dioxide 27 mmol/L (22-29); Chloride 103 mmol/L (98-107); Estimated GFR-MDRD 86; Glucose 151 mg/dL (70-105); Sodium 138 mmol/L (136-145)
[2020-03-01] MEDS: metFORMIN 500 MG TAB PO SCH ×2 (08:43→17:23)
[2020-03-01] MEDS: Empagliflozin 10 MG TAB PO SCH (08:43)
[2020-03-01] MEDS: Carvedilol 25 MG TAB PO SCH ×2 (08:43→17:23)
[2020-03-01] MEDS: glipiZIDE 10 MG TAB PO SCH (08:44)
[2020-03-01] MEDS: Famotidine 20 MG TAB PO SCH ×2 (08:44→23:27)
[2020-03-01] MEDS: Lidocaine 5% Patch TD SCH (09:22)
[2020-03-01] MEDS: HumaLOG 300 UNITS/3 ML VIAL SC PRN (11:28)
[2020-03-01] MEDS: Ondansetron PF 4 MG/2 ML Vial IVP PRN (16:12)
--- NOTE | 2020-03-01 18:02 | PDOC.HOSPP ---
- Subjective Encounter Date: 03/01/20 Encounter Time: 08:00 Subjective: The patient states her dizziness has improved. She has not ambulated today yet. She is asking for update on rehab. Referral sent today per case management She has no significant headache - Objective Vital Signs & Weight: Vital Signs (12 hours) Temp Pulse Resp BP BP Pulse Ox 03/01/20 16:07 97.9 F 83 18 187/103 H 95 03/01/20 11:25 98.0 F 83 18 177/90 H 93 L 03/01/20 07:25 98.1 F 81 16 164/83 H 94 L Weight Weight 230 lb 9 oz I&O: 02/29/20 03/01/20 03/02/20 06:59 06:59 06:59 Intake Total 2080 1570 Output Total 1050 600 Balance 1030 970 Result Diagrams: 03/01/20 03:59 03/01/20 03:59 Additional Labs: Accuchecks 03/01/20 03/01/20 03/01/20 17:08 10:35 05:36 POC Glucose 112 H 165 H 152 H 02/29/20 21:05 POC Glucose 119 H Hospitalist ROS - Review of Systems Constitutional: denies: fever, chills - Medication Medications: Active Medications Generic Name Dose Route Start Last Admin Trade Name Freq PRN Reason Stop Dose Admin Acetaminophen 1,000 mg 02/26/20 23:28 02/28/20 07:10 Acetaminophen 500 Mg Tab PO 1,000 mg Q6H PRN Administration Mild Pain (1-3) Hydrocodone Bitart/Acetaminophen 1 tab 02/27/20 10:57 03/01/20 17:21 Hydrocodone/Acetaminophen 5/325 Mg Tablet PO 1 tab Q6H PRN Administration Moderate to Severe Pain (6-10) Atorvastatin Calcium 10 mg 02/27/20 21:00 02/29/20 20:06 Atorvastatin Calcium 10 Mg Tab PO 10 mg HS BRENDA Administration Carvedilol 12.5 mg 02/28/20 17:00 03/01/20 17:23 Carvedilol 25 Mg Tab PO 12.5 mg BID-WM BRENDA Administration Cyclobenzaprine HCl 5 mg 02/27/20 10:36 03/01/20 01:53 Cyclobenzaprine 10 Mg Tab PO 5 mg BIDPRN PRN Administration Muscle Pain Diphenhydramine HCl 25 mg 02/28/20 11:07 02/29/20 02:13 Diphenhydramine 25 Mg Cap PO 25 mg Q6H PRN Administration Itching & Insomnia Famotidine 20 mg 02/27/20 09:00 03/01/20 08:44 Famotidine 20 Mg Tab PO 20 mg BID BRENDA Administration Glipizide 10 mg 02/27/20 08:00 03/01/20 08:44 Glipizide 10 Mg Tab PO 10 mg QAM-WM BRENDA Administration Insulin Human Lispro 0 units 02/26/20 23:28 03/01/20 11:28 Humalog 300 Units/3 Ml Vial SC 3 unit .AGGRESSIVE SLIDING PRN Administration Aggressive Correctional Scale Lidocaine 2 patch 02/27/20 10:00 03/01/20 09:22 Lidocaine 5% Patch TD 2 patch 1000 BRENDA Administration Metformin HCl 1,000 mg 02/27/20 17:00 03/01/20 17:23 Metformin 500 Mg Tab PO 1,000 mg BID-WM BRENDA Administration Miscellaneous Medication 10 mg 02/28/20 09:00 03/01/20 08:43 Empagliflozin 10 Mg Tab PO 10 mg DAILY BRENDA Administration Miscellaneous Medication 2 each 02/27/20 22:00 02/29/20 20:06 Lidocaine Patch Removal 1 Each TOP Not Given [address] [facility] Ondansetron HCl 4 mg 02/26/20 23:28 02/29/20 16:09 Ondansetron Odt 4 Mg Tab PO 4 mg Q6H PRN Administration Nausea/Vomiting Ondansetron HCl 4 mg 02/26/20 23:28 03/01/20 16:12 Ondansetron Pf 4 Mg/2 Ml Vial IVP 4 mg Q6H PRN Administration Nausea/Vomiting - Exam General Appearance: NAD, awake alert Eye: PERRL, anicteric sclera ENT: normocephalic atraumatic, no oropharyngeal lesions Neck: no JVD Heart: RRR, no murmur, no gallops, no rubs, normal peripheral pulses Respiratory: CTAB, no wheezes, no rales, no ronchi Gastrointestinal: soft, non-tender, non-distended, normal bowel sounds Extremities: no cyanosis, no clubbing, no edema Skin: normal turgor, no lesions, no rashes Neurological: cranial nerve grossly intact, normal sensation to touch, no focal deficits, no new deficit Hosp A/P - Plan ECHO: reviewed and normal CTA thorax: no PE, aberrant right subclavian US Lower extremity: no DVT MRI cervical spine: multilevel degenerative changes This is a 59 year old female who presented with facial swelling, elevated BP and blood sugar #Hypertensive urgency/Hypotension - BP improved to 130. Her hydralazine, tizanidine and amlodipine has been discontinued - increase coreg to 25 mg bid - ECHO normal #Headache - possibly cervicogenic - CT head shows no acute disease. Carotid dopplers negative. She has pain laying down possibly from cervical arthritis. She received reglan and toradol prn yesterday - continue with gabapentin prn #Hand tremor - occasionally at rest, versus sometimes on movement. 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 Unclear if can tolerate MRI brain due to pain laying flat - may have early dementia vs from Moebius syndrome. Explained to sister she will likely need outpatient geriatrics/neuro workup #Facial swelling - improved #Rosacea - face still swollen but not painful. Possibly from rosacea. She has been off steroids for three weeks -claritin prn for allergies Back pain/Neck pain - MRI cervical spine 2018 shows variable multilevel foraminal stenosis . T- spine and L-spine unremarkable 01/2020. Repeat MRI cervical spine shows no significant change - continue gabapentin 100 mg tid Mild cyanosis of lips -vBG unremarkable Type II diabetes - continue metformin, januvia and glipizide - no signs of DKA Disposition: case management consulted. Patient and sister agreeable to rehab. Re-evaluate need for rehab if decrease in event she ambulates better with decrease in gabapentin dose
[2020-03-01] MEDS ORDERED: Carvedilol 6.25 MG TAB PO SCH (18:15)
[2020-03-01] MEDS: Labetalol HCl 100 MG/20 ML VIAL SLOW IVP PRN (18:25)
[2020-03-01] MEDS: Atorvastatin Calcium 10 MG TAB PO SCH (23:27)
[2020-03-02] MEDS: HYDROcodone/Acetaminophen 5/325 mg Tablet PO PRN ×2 (00:40→09:33)
[2020-03-02] MEDS: Lidocaine Patch Removal 1 EACH TOP SCH (06:43)
[2020-03-02] MEDS: HumaLOG 300 UNITS/3 ML VIAL SC PRN (07:06)
[2020-03-02] MEDS: Labetalol HCl 100 MG/20 ML VIAL SLOW IVP PRN ×2 (08:18→17:18)
[2020-03-02] MEDS: Carvedilol 25 MG TAB PO SCH ×2 (09:28→17:03)
[2020-03-02] MEDS: metFORMIN 500 MG TAB PO SCH ×2 (09:28→17:03)
[2020-03-02] MEDS: glipiZIDE 10 MG TAB PO SCH (09:28)
[2020-03-02] MEDS: Empagliflozin 10 MG TAB PO SCH (09:29)
[2020-03-02] MEDS: Famotidine 20 MG TAB PO SCH ×2 (09:29→21:06)
[2020-03-02] MEDS: Lidocaine 5% Patch TD SCH (09:29)
[2020-03-02] MEDS: Ondansetron PF 4 MG/2 ML Vial IVP PRN (09:33)
[2020-03-02] MEDS ORDERED: Amlodipine 5 MG TAB PO SCH (11:30)
[2020-03-02] MEDS: diphenhydrAMINE 25 MG CAP PO PRN (17:22)
--- NOTE | 2020-03-02 18:09 | PDOC.HOSPP ---
- Subjective Encounter Date: 03/02/20 Encounter Time: 10:00 Subjective: The patient states she had a headache this morning and felt nauseous. She did not get up with PT today because her blood pressure was high Patient has no significant dizziness. She states she may have been scratching he head, bruise was noted on he forehead. She denied falling or hitting her head - Objective Vital Signs & Weight: Vital Signs (12 hours) Temp Pulse Resp BP BP Pulse Ox 03/02/20 17:16 194/102 H 03/02/20 15:15 97.6 F 78 18 170/78 H 94 L 03/02/20 11:58 98.2 F 75 18 163/78 H 94 L 03/02/20 09:30 192/104 H 03/02/20 08:25 163/87 H 03/02/20 07:35 98.3 F 76 20 182/93 H 94 L Weight Weight 230 lb 1.6 oz I&O: 03/01/20 03/02/20 03/03/20 06:59 06:59 06:59 Intake Total 1570 1080 Output Total 600 250 Balance 970 830 Result Diagrams: 03/01/20 03:59 03/01/20 03:59 Additional Labs: Accuchecks 03/02/20 03/02/20 03/02/20 17:50 11:11 06:00 POC Glucose 88 151 H 175 H 03/01/20 20:37 POC Glucose 140 H Hospitalist ROS - Review of Systems Constitutional: denies: fever, chills - Medication Medications: Active Medications Generic Name Dose Route Start Last Admin Trade Name Rayray PRN Reason Stop Dose Admin Acetaminophen 1,000 mg 02/26/20 23:28 02/28/20 07:10 Acetaminophen 500 Mg Tab PO 1,000 mg Q6H PRN Administration Mild Pain (1-3) Hydrocodone Bitart/Acetaminophen 1 tab 02/27/20 10:57 03/02/20 09:33 Hydrocodone/Acetaminophen 5/325 Mg Tablet PO 1 tab Q6H PRN Administration Moderate to Severe Pain (6-10) Atorvastatin Calcium 10 mg 02/27/20 21:00 03/01/20 23:27 Atorvastatin Calcium 10 Mg Tab PO 10 mg HS BRENDA Administration Carvedilol 25 mg 03/02/20 08:00 09/30/20 17:03 Carvedilol 25 Mg Tab PO 25 mg BID-WM BRENDA Administration Cyclobenzaprine HCl 5 mg 02/27/20 10:36 03/01/20 01:53 Cyclobenzaprine 10 Mg Tab PO 5 mg BIDPRN PRN Administration Muscle Pain Diphenhydramine HCl 25 mg 02/28/20 11:07 03/02/20 17:22 Diphenhydramine 25 Mg Cap PO 25 mg Q6H PRN Administration Itching & Insomnia Famotidine 20 mg 02/27/20 09:00 03/02/20 09:29 Famotidine 20 Mg Tab PO 20 mg BID BRENDA Administration Glipizide 10 mg 02/27/20 08:00 03/02/20 09:28 Glipizide 10 Mg Tab PO 10 mg QAM-WM BRENDA Administration Insulin Human Lispro 0 units 02/26/20 23:28 03/02/20 07:06 Humalog 300 Units/3 Ml Vial SC 3 unit .AGGRESSIVE SLIDING PRN Administration Aggressive Correctional Scale Labetalol HCl 20 mg 02/26/20 23:28 03/02/20 17:18 Labetalol Hcl 100 Mg/20 Ml Vial SLOW IVP 20 mg Q4H PRN Administration SBP > 180 and HR >/= 70 Lidocaine 2 patch 02/27/20 10:00 03/02/20 09:29 Lidocaine 5% Patch TD 2 patch 1000 BRENDA Administration Metformin HCl 1,000 mg 02/27/20 17:00 03/02/20 17:03 Metformin 500 Mg Tab PO 1,000 mg BID-WM BRENDA Administration Miscellaneous Medication 10 mg 02/28/20 09:00 03/02/20 09:29 Empagliflozin 10 Mg Tab PO 10 mg DAILY BRENDA Administration Miscellaneous Medication 2 each 02/27/20 22:00 03/02/20 06:43 Lidocaine Patch Removal 1 Each TOP 2 each 2200 BRENDA Administration Ondansetron HCl 4 mg 02/26/20 23:28 02/29/20 16:09 Ondansetron Odt 4 Mg Tab PO 4 mg Q6H PRN Administration Nausea/Vomiting Ondansetron HCl 4 mg 02/26/20 23:28 03/02/20 09:33 Ondansetron Pf 4 Mg/2 Ml Vial IVP 4 mg Q6H PRN Administration Nausea/Vomiting - Exam General Appearance: NAD, awake alert Eye: PERRL, anicteric sclera ENT: normocephalic atraumatic, no oropharyngeal lesions Neck: supple, symmetric, no JVD Heart: RRR, no murmur, no gallops, no rubs Respiratory: CTAB, no wheezes, no rales, no ronchi Gastrointestinal: soft, non-tender, non-distended, normal bowel sounds Extremities: no cyanosis, no clubbing, no edema Skin: normal turgor, no lesions, no rashes Neurological: cranial nerve grossly intact, normal sensation to touch, no focal deficits, no new deficit Hosp A/P - Plan ECHO: reviewed and normal CTA thorax: no PE, aberrant right subclavian US Lower extremity: no DVT MRI cervical spine: multilevel degenerative changes This is a 59 year old female who presented with facial swelling, elevated BP and blood sugar #Hypertensive urgency - BP high on admission, then dropped to 80 systolic so meds were held. Now BP has increased again, so resumed meds gradually - continue coreg 25 mg bid - will resume home clonidine 0.2 m bid - continue IV meds prn #Headache - possibly cervicogenic vs hypertensive related - does have headache when BP high. BP control as mentioned above - CT head shows no acute disease. Carotid dopplers negative. She has pain laying down possibly from cervical arthritis. She received reglan and toradol prn yesterday - continue with gabapentin prn #Facial swelling - improved #Rosacea - some increasing erythema noted. Does have history of rosacea - due to malar rash, I will send serology for lupus - continue claritin prn #Hand tremor - not noted today. 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 Unclear if can tolerate MRI brain due to pain laying flat - may have early dementia vs from Moebius syndrome. Explained to sister she will likely need outpatient geriatrics/neuro workup Back pain/Neck pain - stable - MRI cervical spine 2018 shows variable multilevel foraminal stenosis . T- spine and L-spine unremarkable 01/2020. Repeat MRI cervical spine shows no significant change - continue gabapentin 100 mg tid prn Mild cyanosis of lips -vBG unremarkable Type II diabetes - continue metformin, januvia and glipizide - no signs of DKA Disposition: case management consulted. Pending rehab placement
[2020-03-02] MEDS ORDERED: cloNIDine 0.1 MG TAB PO SCH (18:15)
[2020-03-02] MEDS: Acetaminophen 500 MG TAB PO PRN (21:06)
[2020-03-02] MEDS: Atorvastatin Calcium 10 MG TAB PO SCH (21:06)
[2020-03-03] MEDS: HYDROcodone/Acetaminophen 5/325 mg Tablet PO PRN ×2 (01:08→08:21)
[2020-03-03] MEDS: Lidocaine Patch Removal 1 EACH TOP SCH ×2 (01:11→23:02)
[2020-03-03 04:35] LABS: Hemoglobin 13.2 g/dL (12.0-16.0); Mean Corpuscular HGB CONC 33.5 g/dL (32.0-36.0); Mean Corpuscular Volume 92.6 fL (78.0-98.0); Mean Platelet Volume 8.9 fL (7.4-10.4); Platelet Count 168 thou/uL (130-400); RBC Distribution Width 12.2 % (11.5-14.5); Red Blood Cell (RBC) Count 4.25 mill/uL (4.20-5.40); White Blood Cell (WBC) Count 7.4 thou/uL (4.8-10.8)
[2020-03-03 04:59] LABS: ALT (SGPT) 15 U/L (8-55); AST (SGOT) 15 U/L (5-34); Albumin 3.3 g/dL (3.5-5.0); Alkaline Phosphatase 88 U/L (40-110); Anion Gap 11 mmol/L (10-20); BUN (Urea Nitrogen) 17 mg/dL (9.8-20.1); Bilirubin, Total 0.3 mg/dL (0.2-1.2); Calc. Creatinine Clearance 137 mL/min (70-130); Calcium 8.3 mg/dL (7.8-10.44); Carbon Dioxide 30 mmol/L (22-29); Chloride 102 mmol/L (98-107); Estimated GFR-MDRD 82; Glucose 139 mg/dL (70-105); Potassium 3.8 mmol/L (3.5-5.1); Protein, Total 6.3 g/dL (6.0-8.3); Sodium 139 mmol/L (136-145)
[2020-03-03] MEDS: glipiZIDE 10 MG TAB PO SCH (08:23)
[2020-03-03] MEDS: cloNIDine 0.1 MG TAB PO SCH ×2 (08:23→20:41)
[2020-03-03] MEDS: Carvedilol 25 MG TAB PO SCH ×2 (08:24→17:44)
[2020-03-03] MEDS: Amlodipine 5 MG TAB PO SCH (08:24)
[2020-03-03] MEDS: metFORMIN 500 MG TAB PO SCH ×2 (08:24→17:44)
[2020-03-03] MEDS: Famotidine 20 MG TAB PO SCH ×2 (08:25→20:41)
[2020-03-03] MEDS: Lidocaine 5% Patch TD SCH (09:59)
[2020-03-03] MEDS: Empagliflozin 10 MG TAB PO SCH (10:28)
[2020-03-03] MEDS: HumaLOG 300 UNITS/3 ML VIAL SC PRN (12:47)
--- NOTE | 2020-03-03 16:20 | PDOC.HOSPP ---
- Subjective Encounter Date: 03/03/20 Encounter Time: 08:00 Subjective: The patient reports she had a bad night last night, she had headache. She denies nausea. SHe had headache this am when her blood pressure was high She denies nausea. She is requesting for something for her eczema on her face She has pain in her left thigh of her leg, worst when lifting it up. She states she wasn't able to walk far with PT today - Objective Vital Signs & Weight: Vital Signs (12 hours) Temp Pulse Pulse Pulse Resp BP BP 03/03/20 12:00 97.8 F 70 16 03/03/20 09:44 75 73 126/73 03/03/20 08:24 77 172/85 H 03/03/20 08:23 172/85 H 03/03/20 08:00 96.7 F L 77 16 BP BP Pulse Ox Pulse Ox Pulse Ox 03/03/20 12:00 115/63 95 03/03/20 09:44 101/61 93 L 93 L 03/03/20 08:24 03/03/20 08:23 03/03/20 08:00 172/85 H 96 Weight Weight 225 lb 3.2 oz I&O: 03/02/20 03/03/20 03/04/20 06:59 06:59 06:59 Intake Total 1080 1080 400 Output Total 250 1100 Balance 830 -20 400 Result Diagrams: 03/03/20 04:12 03/03/20 04:12 Additional Labs: Accuchecks 03/03/20 03/03/20 03/02/20 11:06 05:50 20:21 POC Glucose 165 H 118 H 115 H 03/02/20 17:50 POC Glucose 88 Hospitalist ROS - Review of Systems Constitutional: denies: fever, chills - Medication Medications: Active Medications Generic Name Dose Route Start Last Admin Trade Name Freq PRN Reason Stop Dose Admin Acetaminophen 1,000 mg 02/26/20 23:28 03/02/20 21:06 Acetaminophen 500 Mg Tab PO 1,000 mg Q6H PRN Administration Mild Pain (1-3) Hydrocodone Bitart/Acetaminophen 1 tab 02/27/20 10:57 03/03/20 08:21 Hydrocodone/Acetaminophen 5/325 Mg Tablet PO 1 tab Q6H PRN Administration Moderate to Severe Pain (6-10) Amlodipine Besylate 5 mg 03/03/20 09:00 03/03/20 08:24 Amlodipine 5 Mg Tab PO 5 mg DAILY BRENDA Administration Atorvastatin Calcium 10 mg 02/27/20 21:00 03/02/20 21:06 Atorvastatin Calcium 10 Mg Tab PO 10 mg HS BRENDA Administration Carvedilol 25 mg 03/02/20 08:00 03/03/20 08:24 Carvedilol 25 Mg Tab PO 25 mg BID-WM BRENDA Administration Clonidine 0.1 mg 03/03/20 09:00 03/03/20 08:23 Clonidine 0.1 Mg Tab PO 0.1 mg BID BRENDA Administration Cyclobenzaprine HCl 5 mg 02/27/20 10:36 03/01/20 01:53 Cyclobenzaprine 10 Mg Tab PO 5 mg BIDPRN PRN Administration Muscle Pain Diphenhydramine HCl 25 mg 02/28/20 11:07 03/02/20 17:22 Diphenhydramine 25 Mg Cap PO 25 mg Q6H PRN Administration Itching & Insomnia Famotidine 20 mg 02/27/20 09:00 03/03/20 08:25 Famotidine 20 Mg Tab PO 20 mg BID BRENDA Administration Glipizide 10 mg 02/27/20 08:00 03/03/20 08:23 Glipizide 10 Mg Tab PO 10 mg QAM-WM BRENDA Administration Insulin Human Lispro 0 units 02/26/20 23:28 03/03/20 12:47 Humalog 300 Units/3 Ml Vial SC 3 unit .AGGRESSIVE SLIDING PRN Administration Aggressive Correctional Scale Labetalol HCl 20 mg 02/26/20 23:28 03/02/20 17:18 Labetalol Hcl 100 Mg/20 Ml Vial SLOW IVP 20 mg Q4H PRN Administration SBP > 180 and HR >/= 70 Lidocaine 2 patch 02/27/20 10:00 03/03/20 09:59 Lidocaine 5% Patch TD 2 patch 1000 BRENDA Administration Metformin HCl 1,000 mg 02/27/20 17:00 03/03/20 08:24 Metformin 500 Mg Tab PO 1,000 mg BID-WM BRENDA Administration Miscellaneous Medication 10 mg 02/28/20 09:00 03/03/20 10:28 Empagliflozin 10 Mg Tab PO 10 mg DAILY BRENDA Administration Miscellaneous Medication 2 each 02/27/20 22:00 03/03/20 01:11 Lidocaine Patch Removal 1 Each TOP 2 each 2200 BRENDA Administration Ondansetron HCl 4 mg 02/26/20 23:28 02/29/20 16:09 Ondansetron Odt 4 Mg Tab PO 4 mg Q6H PRN Administration Nausea/Vomiting Ondansetron HCl 4 mg 02/26/20 23:28 03/02/20 09:33 Ondansetron Pf 4 Mg/2 Ml Vial IVP 4 mg Q6H PRN Administration Nausea/Vomiting - Exam General Appearance: NAD, awake alert General - other findings: morbidly obese Eye: PERRL, anicteric sclera ENT: normocephalic atraumatic, no oropharyngeal lesions Neck: no JVD Heart: RRR, no murmur, no gallops, no rubs Respiratory: CTAB, no wheezes, no rales, no ronchi Gastrointestinal: soft, non-tender, non-distended, normal bowel sounds Extremities: no cyanosis, no clubbing, no edema Skin: normal turgor, no lesions, no rashes Neurological: cranial nerve grossly intact, normal sensation to touch, no focal deficits, no new deficit Hosp A/P - Plan ECHO: reviewed and normal CTA thorax: no PE, aberrant right subclavian US Lower extremity: no DVT MRI cervical spine: multilevel degenerative changes This is a 59 year old female who presented with facial swelling, elevated BP and blood sugar #Hypertensive urgency - BP high on admission, then dropped to 80 systolic so meds were held. Now BP has increased again, so resumed meds gradually - continue coreg 25 mg bid, clonidine 0.2 mg bid. BP was 170 and improved to 115 #Headache - possibly cervicogenic vs hypertensive related - does have headache when BP high. BP control as mentioned above - CT head shows no acute disease. Carotid dopplers negative. She has pain laying down possibly from cervical arthritis. She received reglan and toradol prn yesterday - continue with gabapentin prn #Facial eczema #Rosacea - claritin daily - added hydrocortisone topical for face #Hand tremor - not noted today. 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 Unclear if can tolerate MRI brain due to pain laying flat - may have early dementia vs from Moebius syndrome. Explained to sister she will likely need outpatient geriatrics/neuro workup Back pain/Neck pain - stable - MRI cervical spine 2018 shows variable multilevel foraminal stenosis . T- spine and L-spine unremarkable 01/2020. Repeat MRI cervical spine shows no significant change - continue gabapentin 100 mg tid prn Mild cyanosis of lips -vBG unremarkable Type II diabetes - continue metformin, januvia and glipizide - no signs of DKA Disposition: case management consulted. Patient has been approved to rehab, will discharge tomorrow
--- NOTE | 2020-03-03 16:29 | RAD ---
TWO VIEWS LEFT FEMUR: Comparison: None History: Left leg pain. FINDINGS: Two views of the left femur shows no evidence of acute fracture or dislocation. Mild degenerative apryl nge is seen in the hip and knee. IMPRESSION: No evidence of acute osseous abnormality. POS: EAA
--- NOTE | 2020-03-03 16:36 | RAD ---
2 VIEWS LEFT TIBIA AND FIBULA: Date: 03/03/2020 HISTORY: Left leg pain. FINDINGS: Two views of the left tibia and fibula show no evidence of acute fracture or dislocation. Moderate di ffuse soft tissue swelling is seen. There are varicose veins in the left leg. No degenerative changes are seen in the ankle. Mild degenerative changes are seen in the knee. IMPRESSION: No evidence of acute osseous abnormality. POS: EAA
[2020-03-03] MEDS: Loratadine 10 MG TAB PO PRN (17:44)
[2020-03-03] MEDS: Triamcinolone 0.1% Cream 15 GM TUBE TOP SCH (20:40)
[2020-03-03] MEDS: Methyl Salicylate/Menthol 85 GM TUBE TOP PRN (20:40)
[2020-03-03] MEDS: Acetaminophen 500 MG TAB PO PRN (20:41)
[2020-03-03] MEDS: Atorvastatin Calcium 10 MG TAB PO SCH (20:41)
[2020-03-03] MEDS: Gabapentin 100 MG CAP PO PRN (22:57)
[2020-03-03] MEDS: Cyclobenzaprine 10 MG TAB PO PRN (22:57)
[2020-03-03] MEDS ORDERED: Artificial Tear Sol 15 ML BOT EA EYE PRN (23:17)
[2020-03-04] MEDS: Methyl Salicylate/Menthol 85 GM TUBE TOP PRN (04:16)
[2020-03-04] MEDS: Famotidine 20 MG TAB PO SCH ×2 (09:21→21:14)
[2020-03-04] MEDS: metFORMIN 500 MG TAB PO SCH ×2 (09:21→18:35)
[2020-03-04] MEDS: glipiZIDE 10 MG TAB PO SCH (09:22)
[2020-03-04] MEDS: cloNIDine 0.1 MG TAB PO SCH ×2 (09:22→21:08)
[2020-03-04] MEDS: Carvedilol 25 MG TAB PO SCH ×2 (09:22→18:35)
[2020-03-04] MEDS: Empagliflozin 10 MG TAB PO SCH (09:22)
[2020-03-04] MEDS: HYDROcodone/Acetaminophen 5/325 mg Tablet PO PRN ×2 (09:22→21:06)
[2020-03-04] MEDS: Triamcinolone 0.1% Cream 15 GM TUBE TOP SCH ×2 (09:23→21:07)
[2020-03-04] MEDS: Amlodipine 5 MG TAB PO SCH (09:23)
[2020-03-04] MEDS: Lidocaine 5% Patch TD SCH (09:24)
[2020-03-04] MEDS: HumaLOG 300 UNITS/3 ML VIAL SC PRN (11:34)
[2020-03-04] MEDS ORDERED: Ciprofloxacin 0.3% Ophth Drops 2.5 ml Bottle L EYE SCH (14:00)
--- NOTE | 2020-03-04 16:39 | PDOC.HOSPP ---
- Subjective Encounter Date: 03/04/20 Encounter Time: 10:00 Subjective: The patient is doing better today. She has mild lightheadedness. No dizziness. No headaches SHe states her left eye is still bothering her. SHe reports seeing some black spots and that it is kind of cloudy Her visual acuity is intact. There is no bed at rehab today, but possibly tomorrow. Patient is sad she is missing her brother's today - Objective Vital Signs & Weight: Vital Signs (12 hours) Temp Pulse Pulse Pulse Resp BP BP 03/04/20 15:26 97.7 F 75 20 03/04/20 13:29 78 79 125/74 03/04/20 11:37 97.6 F 83 20 03/04/20 09:23 78 03/04/20 09:22 162/77 H 03/04/20 07:33 97.4 F L 78 20 BP BP BP Pulse Ox 03/04/20 15:26 126/77 96 03/04/20 13:29 119/68 03/04/20 11:37 163/82 H 93 L 03/04/20 09:23 03/04/20 09:22 03/04/20 07:33 162/77 H 95 Weight Weight 226 lb 14.4 oz I&O: 03/03/20 03/04/20 03/05/20 06:59 06:59 06:59 Intake Total 1080 1211 437 Output Total 1100 1150 Balance -20 61 437 Result Diagrams: 03/03/20 04:12 03/03/20 04:12 Additional Labs: Accuchecks 03/04/20 03/04/20 03/03/20 16:17 05:57 20:08 POC Glucose 100 143 H 132 H 03/03/20 16:53 POC Glucose 90 Hospitalist ROS - Review of Systems Constitutional: denies: fever, chills - Medication Medications: Active Medications Generic Name Dose Route Start Last Admin Trade Name Freq PRN Reason Stop Dose Admin Acetaminophen 1,000 mg 02/26/20 23:28 03/03/20 20:41 Acetaminophen 500 Mg Tab PO 1,000 mg Q6H PRN Administration Mild Pain (1-3) Hydrocodone Bitart/Acetaminophen 1 tab 02/27/20 10:57 03/04/20 09:22 Hydrocodone/Acetaminophen 5/325 Mg Tablet PO 1 tab Q6H PRN Administration Moderate to Severe Pain (6-10) Amlodipine Besylate 5 mg 03/03/20 09:00 03/04/20 09:23 Amlodipine 5 Mg Tab PO 5 mg DAILY BRENDA Administration Artificial Tears 2 drop 03/03/20 23:17 03/04/20 04:16 Artificial Tear Rosibel 15 Ml Bot EA EYE 2 drop QID PRN Administration Dry Eyes Atorvastatin Calcium 10 mg 02/27/20 21:00 03/03/20 20:41 Atorvastatin Calcium 10 Mg Tab PO 10 mg HS BRENDA Administration Carvedilol 25 mg 03/02/20 08:00 03/04/20 09:22 Carvedilol 25 Mg Tab PO 25 mg BID-WM BRENDA Administration Clonidine 0.1 mg 03/03/20 09:00 03/04/20 09:22 Clonidine 0.1 Mg Tab PO 0.1 mg BID BRENDA Administration Cyclobenzaprine HCl 5 mg 02/27/20 10:36 03/03/20 22:57 Cyclobenzaprine 10 Mg Tab PO 5 mg BIDPRN PRN Administration Muscle Pain Diphenhydramine HCl 25 mg 02/28/20 11:07 03/02/20 17:22 Diphenhydramine 25 Mg Cap PO 25 mg Q6H PRN Administration Itching & Insomnia Famotidine 20 mg 02/27/20 09:00 03/04/20 09:21 Famotidine 20 Mg Tab PO 20 mg BID BRENDA Administration Gabapentin 100 mg 02/29/20 15:00 03/03/20 22:57 Gabapentin 100 Mg Cap PO 100 mg TID PRN Administration Pain Glipizide 10 mg 02/27/20 08:00 03/04/20 09:22 Glipizide 10 Mg Tab PO 10 mg QAM-WM BRENDA Administration Insulin Human Lispro 0 units 02/26/20 23:28 03/04/20 11:34 Humalog 300 Units/3 Ml Vial SC 3 unit .AGGRESSIVE SLIDING PRN Administration Aggressive [employer]al Scale Labetalol HCl 20 mg 02/26/20 23:28 03/02/20 17:18 Labetalol Hcl 100 Mg/20 Ml Vial SLOW IVP 20 mg Q4H PRN Administration SBP > 180 and HR >/= 70 Lidocaine 2 patch 02/27/20 10:00 03/04/20 09:24 Lidocaine 5% Patch TD 2 patch 1000 BRENDA Administration Loratadine 10 mg 02/27/20 10:54 03/03/20 17:44 Loratadine 10 Mg Tab PO 10 mg DAILYPRN PRN Administration Allergies Menthol/Methyl Salicylate 1 gm 03/03/20 11:50 03/04/20 04:16 Methyl Salicylate/Menthol 85 Gm Tube TOP 1 gm QID PRN Administration Pain Metformin HCl 1,000 mg 02/27/20 17:00 03/04/20 09:21 Metformin 500 Mg Tab PO 1,000 mg BID-WM BRENDA Administration Miscellaneous Medication 10 mg 02/28/20 09:00 03/04/20 09:22 Empagliflozin 10 Mg Tab PO 10 mg DAILY BRENDA Administration Miscellaneous Medication 2 each 02/27/20 22:00 03/03/20 23:02 Lidocaine Patch Removal 1 Each TOP 2 each 2200 BRENDA Administration Ondansetron HCl 4 mg 02/26/20 23:28 02/29/20 16:09 Ondansetron Odt 4 Mg Tab PO 4 mg Q6H PRN Administration Nausea/Vomiting Ondansetron HCl 4 mg 02/26/20 23:28 03/02/20 09:33 Ondansetron Pf 4 Mg/2 Ml Vial IVP 4 mg Q6H PRN Administration Nausea/Vomiting Sodium Chloride 10 ml 03/03/20 21:00 03/04/20 09:24 Flush - Normal Saline 10 Ml Syringe IVF 10 ml Q12HR BRENDA Administration Triamcinolone Acetonide 1 gm 03/03/20 21:00 03/04/20 09:23 Triamcinolone 0.1% Cream 15 Gm Tube TOP 1 gm BID BRENDA Administration - Exam General Appearance: NAD, awake alert Eye - other findings: left conjunctiva red. No discharge. normal visual acuity Neck: supple, symmetric, no JVD Heart: RRR, no murmur, no gallops, no rubs Respiratory: CTAB, no wheezes, no rales, no ronchi Gastrointestinal: soft, non-tender, non-distended, normal bowel sounds Extremities: no cyanosis, no clubbing, no edema Skin: normal turgor, no lesions Skin - other findings: facial erythema and scaling with eczema Neurological: cranial nerve grossly intact, normal sensation to touch, no new deficit, facial droop Musculoskeletal: normal tone, normal strength, no muscle wasting Psychiatric: A&O x 3 Hosp A/P - Plan ECHO: reviewed and normal CTA thorax: no PE, aberrant right subclavian US Lower extremity: no DVT MRI cervical spine: multilevel degenerative changes This is a 59 year old female who presented with facial swelling, elevated BP and blood sugar. Currently pending rehab bed #Hypertensive urgency - BP high on admission, then dropped to 80 systolic so meds were held. BP meds restarted when BP increased again - continue coreg 25 mg bid, clonidine 0.2 mg bid, amlodipine 5 mg daily BP 120-160 #Left eye conjunctivitis - ordered cipro eye drops. Dr. Escalera office called due to complaint of black floaters #Headache - hypertensive vs cervicogenic - improved, BP better controlled today - CT head shows no acute disease. Carotid dopplers negative. - continue with gabapentin prn #Facial eczema #Rosacea - claritin daily - continue hydrocortisone topical for face #Hand tremor - resolved, occasionally resting and sometimes intention. 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 Unclear if can tolerate MRI brain due to pain laying flat - may have early dementia vs from Moebius syndrome. Explained to sister she will likely need outpatient geriatrics/neuro workup Back pain/Neck pain - stable - MRI cervical spine 2018 shows variable multilevel foraminal stenosis . T- spine and L-spine unremarkable 01/2020. Repeat MRI cervical spine shows no significant change - continue gabapentin 100 mg tid prn Mild cyanosis of lips -resolved, VBG unremarkable Type II diabetes - continue metformin, januvia and glipizide - no signs of DKA Disposition: likely dischiarge to rehab tomorrow
[2020-03-04] MEDS ORDERED: Labetalol HCl 100 MG/20 ML VIAL ONE (18:25)
[2020-03-04] MEDS: Atorvastatin Calcium 10 MG TAB PO SCH (21:04)
[2020-03-04] MEDS: diphenhydrAMINE 25 MG CAP PO PRN (21:05)
[2020-03-04] MEDS: Gabapentin 100 MG CAP PO PRN (21:05)
[2020-03-04] MEDS: Acetaminophen 500 MG TAB PO PRN (21:06)
[2020-03-04] MEDS: Loratadine 10 MG TAB PO PRN (21:06)
[2020-03-04] MEDS: Lidocaine Patch Removal 1 EACH TOP SCH (22:26)
[2020-03-05] MEDS: Amlodipine 5 MG TAB PO SCH (08:43)
[2020-03-05] MEDS: Carvedilol 25 MG TAB PO SCH (08:43)
[2020-03-05] MEDS: glipiZIDE 10 MG TAB PO SCH (08:43)
[2020-03-05] MEDS: cloNIDine 0.1 MG TAB PO SCH (08:43)
[2020-03-05] MEDS: Empagliflozin 10 MG TAB PO SCH (08:43)
[2020-03-05] MEDS: Famotidine 20 MG TAB PO SCH (08:43)
[2020-03-05] MEDS: metFORMIN 500 MG TAB PO SCH (08:43)
[2020-03-05] MEDS: Methyl Salicylate/Menthol 85 GM TUBE TOP PRN (08:44)
[2020-03-05] MEDS: Triamcinolone 0.1% Cream 15 GM TUBE TOP SCH (08:46)
[2020-03-05] MEDS: Lidocaine 5% Patch TD SCH (08:52)
[2020-03-05 11:21] VITALS: TEMP 97.8
[2020-03-05 14:46] VITALS: BP 133/76
--- NOTE | 2020-03-05 20:26 | DIS ---
DATE OF ADMISSION: 02/26/2020 DATE OF DISCHARGE: 03/05/2020 DISCHARGE DIAGNOSES: 1. Hypertensive urgency, resolved. 2. Left eye conjunctivitis. 3. Headache secondarily to hypertensive urgency, improved. 4. Deconditioning. 5. Diabetes mellitus, type 2. CONSULTATIONS: Dr. Espinoza with Neurology Service. PERTINENT LABORATORY AND X-RAY FINDINGS: Troponin I negative x3. CRP 2.12. CBC within normal limits. Beta-hydroxybutyrate 0.12. COVID-19 PCR not detected on 02/26/2020. CT angiogram of the chest dated 02/26/2020, showed no evidence for pulmonary embolus. Left lower extremity venous Doppler study dated 02/26/2020, showed no evidence for DVT. 2D transthoracic echocardiogram dated 02/27/2020, showed ejection fraction of 55% to 60%. Technically inadequate exam. Carotid Doppler study dated 02/28/2020 showed limited exam, essentially nondiagnostic due to body habitus. CT of the brain without contrast dated 02/28/2020, showed no acute intracranial process. Cervical spine MRI dated 02/29/2020, showed multilevel degenerative changes. Two views of the left femur dated 03/03/2020, showed no evidence of fracture. Two views of the left tibia and fibula dated 03/03/2020, showed no acute fracture. HOSPITAL COURSE: The patient was initially admitted with headache, facial swelling, and general malaise with associated hypertensive urgency. The patient initially was noted with blood pressures in the 220s/140s and treated with IV hydralazine. The patient was also given transdermal nitroglycerin and admitted to the telemetry unit. 2D transthoracic echocardiogram was performed, however, this was a technically inadequate exam due to the patient's body habitus and poor endocardial windows. The patient's blood pressure trend improved with resumption of antihypertensive medications and serial monitoring. Likely contributing factor was severe emotional distress after the patient received a news that her brother had just prior to admission. The patient underwent extensive evaluation including multiple imaging studies as well as evaluation by the Neurology Service with essentially negative results. The patient was resumed on her regular oral regimen for her blood pressure and diabetes and remained clinically stable. The patient was noted with severe weakness and deconditioning and deemed an appropriate candidate for ongoing inpatient rehabilitation. The patient has been approved and will transfer to [facility] on 03/05/2020. I have examined the patient at the time of discharge and discussed followup instructions. The patient verbalizes understanding and in agreement and ready for discharge on 03/05/2020. DISCHARGE MEDICATIONS: 1. Carvedilol 25 mg p.o. b.i.d. 2. Cyclobenzaprine 5 mg p.o. b.i.d. p.r.n. 3. Glipizide 10 mg p.o. daily. 4. Invokana 100 mg p.o. daily. 5. Metformin 1000 mg p.o. b.i.d. 6. Nystatin one application topically b.i.d. 7. Pravachol 40 mg p.o. at bedtime. 8. Clonidine 0.1 mg p.o. b.i.d. 9. Ciprofloxacin eyedrops one drop to each eye q.i.d. 10. Lidocaine patch two patches applied topically daily. 11. Gabapentin 100 mg p.o. t.i.d. 12. Jeff 5/325 mg 1 tablet p.o. q.6 hours p.r.n. pain. 13. Norvasc 5 mg p.o. daily. FOLLOWUP: The patient may follow up with Dr. Kelsey Rubi after discharge from inpatient rehabilitation. CONDITION ON DISCHARGE: Fair. ACTIVITY: Ad kina, rolling walker with standby/contact guard assistance. DIET: ADA and heart healthy. CODE STATUS: Full. DISPOSITION: Discharged to [place], [place] on 03/05/2020. TIME SPENT: Total time preparing and coordinating discharge, 37 minutes. Job ID: [id number]
[2020-03-06 15:54] LABS: ANA Symphony (Qualitative) Negative (Negative); ANA Symphony (Quantitative) 0.2 Ratio (< 0.7 Negative); dsDNA IgG Antibody Less than 0.5 IU/mL (<10 Negative)
--- NOTE | 2020-03-08 08:22 | CON ---
DATE OF CONSULTATION: 03/05/2020 TIME AND DATE OF CONSULT: 1330 hours, March 05, 2020. REASON FOR CONSULT: Cloudy vision with black floaters of the left eye. HISTORY OF PRESENT ILLNESS: The patient is a 59-year-old woman, who was admitted for blood pressure in the 220s/140s. I saw one recorded blood pressure of 227/145. Sometime after admission, she complained of the left eye vision being cloudy with black spots. She was also noted to have redness of the left eye and ciprofloxacin eye drops were begun. On questioning, she said that the left eye had been red and bothering her for about 3 weeks. PHYSICAL EXAMINATION: On examination, visual acuity without correction (she is nearsighted) was J-5 for the right eye and J-7 for the left eye. Alexander-Pen intra-ocular pressure was 14 and 11 mmHg right eye, then 12 and 8 mmHg left eye. She has severe acne and rosacea. The pupils are equal and reactive without an afferent pupillary defect. The motility was aligned and full. On anterior segment exam, the right eye is normal. The left eye shows 1+ injection of the bulbar conjunctiva. She also has an intermittent spastic entropion (this is the orbicularis muscle sliding up on the lower partial plate and rotating the eye inwards, such that the eyelid margin and lashes rub on the lower conjunctiva and cornea, causing her redness. The pupils were dilated with Mydriacyl and Dominick-Synephrine. While on fundus examination, there is no detectable neovascularization. The retina and optic nerves are normal. ASSESSMENT: 1. 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 2. There is probable vitreous hemorrhage of the left eye during one of her higher blood pressures. PLAN: treatment. The spastic entropion can be usually corrected with Quickert sutures and I will try to contact her in the rehab area after discharge from the hospital or doing those. Job ID: [id number]
== END 2020-03-05 15:30 | DRG 638 ==
LOC: ERS 19:30 → 2NO 21:27
PROVIDERS: ADMIT Family Medicine; ATTEND Family Medicine
PROC: 3E0234Z Introduction of Serum, Toxoid and Vaccine into Muscle, Percutaneous Approach (ICD-10-PCS; principal; 2020-02-27)
DX: E11.65 Type 2 diabetes mellitus with hyperglycemia (principal); E87.2 Acidosis; Z68.41 Body mass index [BMI] 40.0-44.9, adult; I16.0 Hypertensive urgency; I10 Essential (primary) hypertension; Z20.828 Contact with and (suspected) exposure to other viral communicable diseases; H10.9 Unspecified conjunctivitis; G89.29 Other chronic pain; M54.9 Dorsalgia, unspecified; M54.2 Cervicalgia; I25.10 Atherosclerotic heart disease of native coronary artery without angina pectoris; E78.5 Hyperlipidemia, unspecified; R25.1 Tremor, unspecified; E66.9 Obesity, unspecified; Z87.440 Personal history of urinary (tract) infections; Z90.49 Acquired absence of other specified parts of digestive tract; Z79.899 Other long term (current) drug therapy; Z79.84 Long term (current) use of oral hypoglycemic drugs; Z88.0 Allergy status to penicillin; Z23 Encounter for immunization
CPT/HCPCS: 36415; 36416; 70450; 71275; 72141; 80048; 80053; 82010; 82805; 84484; 84630; 85025; 85027; 85652; 86038; 86140; 86225; 87635; 90471; 90732; 93306; 93880; 94760; 96361; 96374; 96375; 96376; G0009; J0360; J1815; J1885; J2405; J2765; J7030; Q0162; Q0163; Q9967; U0003